=== PATIENT | male | born 1965 | race Caucasian/White ===

== ENCOUNTER 2016-12-05 09:56 | Emergency (ER) | payer OTHER, MEDICAID ==
[~2016-12-05] VITALS: Ht 165.1 cm; Wt 68.0 kg
[~2016-12-05 09:56] MED LIST: ANAPROX DS550 MG PO; ANTIHISTAMINE25 M1 PO; BACTRIM DS 8001 TA1 PO; CATAFLAM50 MG PO; DAYPRO600 M1 PO; DOXYCYCLINE HY100 M3 PO; KEFLEX500 MG PO; MEDROL DOSEPAK4 MG PO; MOTRIN400 MG PO; Motrin,Rufen800 MG PO; PIROXICAN10 MG PO; ROBAXIN-750750 MG PO; ROBAXIN750 MG PO; SEPTRA DS 800 M1 TAB PO; SEROQUEL25 MG PO; STRATTERA100 MG PO; VALIUM5 MG PO; VICODIN 5/500 505 MG PO; VICODIN 500 MG-1 TAB PO; VICODIN ES 7501 TAB PO; ZITHROMAX Z PA250 MG PO; [UNRECOGNIZED DRUG - REMARK]
[2016-12-05 15:20] VITALS: BP 134/78
== END 2016-12-05 15:24 | disposition short-term general hospital (02) ==
LOC: ED 09:56
DX: S92.001A Unspecified fracture of right calcaneus, initial encounter for closed fracture (principal); Z88.6 Allergy status to analgesic agent; Z79.899 Other long term (current) drug therapy; W01.0XXA Fall on same level from slipping, tripping and stumbling without subsequent striking against object, initial encounter; Y93.89 Activity, other specified; Y92.89 Other specified places as the place of occurrence of the external cause; Y99.8 Other external cause status

== ENCOUNTER → 2017-11-09 | Outpatient (CLI) | payer OTHER, MEDICAID ==
--- NOTE | ~2017-11-09 | EKG ---
[place], [place] ELECTROCARDIOGRAM REPORT NAME: BRANDT GANDHI UNIT #: [id number] ROOM: DOCTOR: EPIPHANY DRAFT REPORT BIRTHDATE: [birth year] [facility] [place] Test Date: 2017-11-09 Test Time: 10:09:06 Pat Name: BRANDT GANDHI Department: Room: Gender: Sign Writer Letterer Or Painter: : 1965 Requested By: TAIWO RIVERA Order Number: [id number] Reading MD: Gabby Goddard MD Measurements Intervals [place] Rate: 58 P: 42 HI: 139 QRS: 71 QRSD: 96 T: 10 QT: 410 QTc: 403 Interpretive Statements Sinus rhythm Baseline wander in lead(s) V4 Electronically Signed On 11-10-2017 14:12:21 PDT by Gabby Goddard MD CM:EKGRPT:ELECTROCARDIOGRAM REPORT [id number] TAIWO TOURE DRAFT REPORT TAIWO RIVERA
[2017-11-09 09:55] LABS: BASO # 0.1 10*3/uL (0.0-0.1); EOS # 0.1 10*3/uL (0.0-0.4); EOS % 2.3 % (1.0-4.0); HEMATOCRIT 42.8 % (42.0-52.0); HEMOGLOBIN 14.4 g/dl (14.0-18.0); LYMPH # 1.8 10*3/uL (1.3-4.4); LYMPH % 29.4 % (27.0-41.0); MEAN CELL VOLUME 97.9 fl (80.0-94.0); MEAN CORPUSCULAR HGB CONC 33.6 g/dl (33.0-37.0); MONO # 0.5 10*3/uL (0.1-1.0); MONO % 8.4 % (3.0-9.0); NEUT # 3.7 10*3/uL (2.3-7.9); NEUT % 58.7 % (47.0-73.0); PLATELET COUNT AUTOMATED 262 10*3/uL (130-400); RED BLOOD COUNT 4.37 10*6/uL (4.50-5.90); RED CELL DISTRI WIDTH 12.2 % (0-14.5); WHITE BLOOD COUNT 6.2 10*3/uL (4.8-10.8)
[2017-11-09 10:26] LABS: ALBUMIN 3.6 gm/dl (3.1-4.5); ALKALINE PHOSPHATASE 79 U/L (45-117); BILIRUBIN, DIRECT 0.1 mg/dL (0.0-0.2); BUN 11 mg/dl (7-24); CHLORIDE 109 mmol/L (98-107); CHOLESTEROL 213 mg/dL (<200); CREATININE 0.81 mg/dL (0.70-1.30); HDL CHOLESTEROL 38 mg/dl (40-60); LDL CHOLESTEROL 137 mg/dL (9-159); SGOT/AST 54 IU/L (3-35); SGPT/ALT 60 U/L (12-78); SODIUM 142 mmol/L (136-145); TOTAL PROTEIN 7.8 gm/dL (6.4-8.2); TRIGLYCERIDES 191 mg/dl (<150); VLDL CHOLESTEROL 38 mg/dL (6-40)
== END | disposition home or self-care (01) ==
LOC: LAB 09:35
PROVIDERS: Nurse Practitioner Family
DX: Z51.81 Encounter for therapeutic drug level monitoring (principal); Z79.899 Other long term (current) drug therapy

== ENCOUNTER → 2018-07-27 | Day surgery (SDC) | payer OTHER, MEDICAID ==
[~2018-07-27] VITALS: Ht 162.5 cm; Wt 59.0 kg
[~2018-07-27] MED LIST changes: +OMEPRAZOLE20 M2 PO; +PAROXETINE40 MG PO
--- NOTE | ~2018-07-27 | O ---
[place], [place] OPERATIVE NOTE NAME: BRANDT GANDHI UNIT #: [id number] ROOM: DOCTOR: CHERISE SLOAN MD BIRTHDATE: [birth year] DOS: 07/27/2018 GASTOENDOSCOPIC REPORT INDICATIONS: This is a 52-year-old who is status post cranial injury and recovery with dysphagia to solid food, difficulty to initiate the first phase of the swallow. ALLERGIES: No known medication. FAMILY HISTORY: Noncontributory. PAST SURGICAL HISTORY: Head trauma and right leg repair. PAST MEDICAL HISTORY: Sleep disorder, PST, dysphagia to solid food. SOCIAL HISTORY: Stopped smoking 3 years ago. Nonalcohol consumer. PROCEDURE: Today's procedure part of investigation is panendoscopy plus biopsy plus esophageal balloon dilation to size 19. PREMEDICATION: Propofol. SCOPE: Olympus forward-viewing gastroscope Q10 video. REPORT: After putting the patient in left lateral position and application of lubricant to the scope, scope was introduced. Thereafter, under direct visualization, advanced through the length of esophagus without difficulty. Upper esophageal benign stricture was noted. Hiatal hernia of 2.5 cm was approached. Gastric pouch was entered. Evidence of gastritis noted. Antral biopsy obtained for H. pylori. Duodenal bulb, second and third part within normal limits. At this stage, the scope was withdrawn back to the proximal gastric pouch. A balloon size 18-20 was introduced and sweeped along the length of the esophagus. Cervical esophagus at the level of the hypopharynx is extremely tight, however, we managed to dilate to size 19. The patient extubated and tolerated the procedure well. IMPRESSION: Upper esophageal stricture, status post balloon dilation to size 19, hiatal hernia, gastritis, status post biopsy. PLAN AND DISCUSSION: Omeprazole 20 mg 1 every day and elevation of the head of the bed 6 inches all time and follow up. [place], [place] OPERATIVE NOTE NAME: BRANDT GANDHI Eleazar UNIT #: [id number] ROOM: DOCTOR: CHERISE SLOAN MD BIRTHDATE: [birth year] CHERISE SLOAN MD CM:OPRECORD:OPERATIVE NOTE [id number] [id number] CHERISE SLOAN MD 08/01/18 0732 interface
[2018-07-27 12:45] VITALS: BP 130/90
[2018-07-27 13:39] VITALS: BP 128/84
[2018-07-27 13:54] VITALS: BP 135/87; BP 137/88
[2018-07-27 14:09] VITALS: BP 143/95
== END | disposition home or self-care (01) ==
LOC: SDC 07-24 11:00
DX: K22.2 Esophageal obstruction (principal); K44.9 Diaphragmatic hernia without obstruction or gangrene; Z88.8 Allergy status to other drugs, medicaments and biological substances; Z82.49 Family history of ischemic heart disease and other diseases of the circulatory system; G43.909 Migraine, unspecified, not intractable, without status migrainosus; Z98.890 Other specified postprocedural states; I10 Essential (primary) hypertension; K29.50 Unspecified chronic gastritis without bleeding; F41.9 Anxiety disorder, unspecified; F32.9 Major depressive disorder, single episode, unspecified

== ENCOUNTER 2018-11-26 00:57 | Inpatient (IN) | payer OTHER, MEDICAID ==
[2018-11-08 14:19] VITALS: BP 179/115
[2018-11-08 15:29] LABS: BASO # 0.1 10*3/uL (0.0-0.1); BASO % 1.2 % (0.0-1.0); EOS # 0.1 10*3/uL (0.0-0.4); EOS % 0.9 % (1.0-4.0); HEMATOCRIT 47.6 % (42.0-52.0); HEMOGLOBIN 16.7 g/dl (14.0-18.0); LYMPH # 1.6 10*3/uL (1.3-4.4); LYMPH % 28.8 % (27.0-41.0); MEAN CELL VOLUME 96.7 fl (80.0-94.0); MEAN CORPUSCULAR HGB 33.9 pg (27.0-31.0); MEAN CORPUSCULAR HGB CONC 35.1 g/dl (33.0-37.0); MEAN PLATELET VOLUME 10.6 fl (9.6-12.3); MONO # 0.5 10*3/uL (0.1-1.0); MONO % 9.4 % (3.0-9.0); NEUT # 3.4 10*3/uL (2.3-7.9); NEUT % 59.7 % (47.0-73.0); PLATELET COUNT AUTOMATED 189 10*3/uL (130-400); RED BLOOD COUNT 4.92 10*6/uL (4.50-5.90); RED CELL DISTRI WIDTH 12.6 % (0-14.5); WHITE BLOOD COUNT 5.7 10*3/uL (4.8-10.8)
[2018-11-08 15:54] LABS: BUN 9 mg/dl (7-24); CHLORIDE 103 mmol/L (98-107); CREATININE 0.76 mg/dL (0.70-1.30); POTASSIUM 3.8 mmol/L (3.5-5.1); SODIUM 138 mmol/L (136-145)
[2018-11-08 16:10] LABS: BILIRUBIN NEGATIVE (NEGATIVE); BLOOD NEGATIVE (NEGATIVE); CLARITY CLEAR (CLEAR); COLOR YELLOW (YELLOW); GLUCOSE NEGATIVE (NEGATIVE); KETONE NEGATIVE (NEGATIVE); LEUKO ESTERASE TRACE (NEGATIVE); NITRITE NEGATIVE (NEGATIVE); PH 7.5 (5.0-9.0); SPECIFIC GRAVITY <= 1.005 (1.005-1.030); UROBILINOGEN 0.2 E.U./dl (0.2-1.0)
[2018-11-08 16:17] LABS: WBC 0-2 wbc/hpf (0-5)
[2018-11-26] VITALS (8 sets, daily range): BP systolic 134–169; BP diastolic 82–100
[~2018-11-26] VITALS: Ht 162.5 cm; Wt 65.8 kg
[~2018-11-26 00:57] MED LIST changes: +ASPIRIN ADULT L81 M1 PO; +ATOMOXETINE HCL80 MG PO; +NEUDEXT PO; +PANTOPRAZOLE SO40 MG PO
--- NOTE | 2018-11-26 14:46 | NUR ---
Time: 1445 A year old MALE admitted to under services of DR. OLIVIER DORMAN,DEWAYNE CAPUTO. Pt. arrived [place] from [place]. Chief complaint: S/P COLON RESECTION. AZIZA GARCIA
--- NOTE | 2018-11-26 16:21 | NUR ---
NURSE TO NURSE REPORT REC'D FROM GRAEME DAILY IN SURGERY. PT TO BE COMING TO ROOM SOON FROM RECOVERY FOLLOWING RIGHT SIDED OPEN COLON RESECTION.
--- NOTE | 2018-11-26 17:00 | NUR ---
MORPHINE GIVE FOR PAIN RELATED TO ABD SURGERY RATED 10/10. PT RESTLESS AND WINCHING IN PAIN. CALL LIGHT IN REACH. WILL MONITOR. VISITORS AT BEDSIDE.
--- NOTE | 2018-11-26 17:49 | NUR ---
PER PT, MORPHINE WAS EFFECTIVE. CALL LIGHT IN REACH. WILL CONTINUE TO MONITOR. PAIN RATED 3/10.
--- NOTE | 2018-11-26 18:57 | NUR ---
MED REC UPDATED.
--- NOTE | 2018-11-26 20:40 | NUR ---
PRN MORPHINE GIVEN FOR POST-OP ABD PAIN RATED 10/10. CALL LIGHT IN REACH. IVF GOING WITH EASE. WILL CONTINUE TO MONITOR.
--- NOTE | 2018-11-26 20:45 | NUR ---
Pt instructed on incentive spirometer. Encouraged self use 10 breaths an hour.
--- NOTE | 2018-11-26 21:36 | NUR ---
PER PT, PAIN TO ABD IS RATED 2/10 FOLLOWING MORPHINE. CALL LIGHT IN REACH. WILL CONTINUE TO MONITOR.
[2018-11-27] VITALS: BP 146/89
--- NOTE | 2018-11-27 06:12 | NUR ---
OKSANABRANDT [id number] Please refer to the physician's history and physical for past medical history, comorbid conditions, and allergies. Diagnosis: S/P COLON RESECTION Sheldon Score: 19,LOW OR NO RISK WOUND DESCRIPTIONS: Wound Number: 1 Dressing intact to middle of abdomen. No strikethrough drainage noted at time of assessment. Abdominal binder intact at time of assessment. Patient was having pain at time of assessment and nurse caring for patient was getting prn medication at this time. Patient stated he will follow up with Dr. Rothman upon discharge since her performed the surgery. Surface the patient is resting on: Isoflex SKIN PREVENTION RECOMMENDATION: 1. Pressure redistribution support surface as appropriate 2. Elevate heels 3. Remove boots/TEDS every shift and reapply 4. Head of bed 30 degrees as tolerated 5. Assess nutrition and hydration 6. Manage moisture 7. Avoid the use of containment devices while in bed 8. Use absorptive products on surfaces limit layers of linens on bed 9. Turn and reposition every 1-2 hours in bed and every 1 hour in chair as tolerated 10. Weight shifts every 15 minutes while up in chair 11. Offloading with pillows or device to keep heels elevated off bed 12. Monitor skin at least every shift 13. Inspect under medical devices twice a day WOUND TREATMENT RECOMMENDATIONS: Continue post orders per Dr. Rothman.
[2018-11-27 07:35] LABS: BASO % 0.1 % (0.0-1.0); HEMATOCRIT 43.7 % (42.0-52.0); LYMPH # 0.7 10*3/uL (1.3-4.4); LYMPH % 7.6 % (27.0-41.0); MEAN CELL VOLUME 97.1 fl (80.0-94.0); MEAN CORPUSCULAR HGB 33.3 pg (27.0-31.0); MEAN CORPUSCULAR HGB CONC 34.3 g/dl (33.0-37.0); MEAN PLATELET VOLUME 11.2 fl (9.6-12.3); MONO % 10.3 % (3.0-9.0); NEUT # 7.9 10*3/uL (2.3-7.9); NEUT % 81.8 % (47.0-73.0); PLATELET COUNT AUTOMATED 174 10*3/uL (130-400); RED CELL DISTRI WIDTH 12.1 % (0-14.5); WHITE BLOOD COUNT 9.6 10*3/uL (4.8-10.8)
--- NOTE | 2018-11-27 07:48 | NUR ---
Shift chart check completed.24 HR chart check completed.Patient asleep with face relaxed, no respiratory distress, during bedside report.
[2018-11-27 07:57] LABS: ALBUMIN 2.9 gm/dl (3.1-4.5); ALKALINE PHOSPHATASE 54 U/L (45-117); BUN 8 mg/dl (7-24); CHLORIDE 106 mmol/L (98-107); CREATININE 0.77 mg/dL (0.70-1.30); SGOT/AST 32 IU/L (3-35); SGPT/ALT 28 U/L (12-78); SODIUM 137 mmol/L (136-145)
[2018-11-27 08:00] VITALS: BP 140/91
--- NOTE | 2018-11-27 09:04 | NUR ---
ON ASSESSMENT PATIENT IS RESTING EASILY. HE'S NPO EXCEPT FOR ICE CHIPS AND SIPS OF WATER. HE CLAIMS TO BE HUNGRY AND C/O ABDOMINAL PAIN. IV FLUIDS CONTINUE. DRESSING IS INTACT WITH NO EXTERNAL DRAINAGE, BINDER IN PLACE. SCD'S ON. STEPHENSON PATENT MONTRELL URINE.
--- NOTE | 2018-11-27 09:37 | NUR ---
MEDICATED WITH PRN MORPHINE PER ORDER AND REQUEST FO ABDOMINAL PAIN RATED AT 8 OUT OF 10.
--- NOTE | 2018-11-27 10:51 | NUR ---
EARLIER PAIN MED "HELPING".
[2018-11-27 12:00] VITALS: BP 140/82
--- NOTE | 2018-11-27 12:44 | NUR ---
CALLED FOR NEW DIET ORDERS. PT HAS BSX4 HYPERACTIVE BUT HAS NOT PASSED FLATUS YET. ORDERED TO CONTINUE ICE CHIPS WITH SIPS OF WATER ONLY.
--- NOTE | 2018-11-27 13:35 | NUR ---
MORPHINE GIVEN FOR ABD PAIN RATED 10/10. CALL LIGHT IN REACH. VISITOR AT BEDSIDE. WILL MONITOR.
--- NOTE | 2018-11-27 13:50 | NUR ---
Gravel Inspector in to talk to patient. Patient states lives at HOME with ALONE. There are NO steps in the home. Physician: NONE, Pharmacy: [facility] Home health services: NONE Patient's level of ADLs: INDEPENDENT Patient has working utilities: YES DME: HAS SHOWER CHAIR, CANE Follow-up physician's appointment after d/c: PT WANTS TO BE SET UP WITH RESIDENT CLINIC ON DISCHARGE. NUMBER GIVEN TO PT Does patient want to access PORTAL?: NO Discharge plan PT LIVES AT HOME ALONE AND IS INDEPENDENT IN HIS CARE. STATES HE DOES NOT HAVE A DOCTOR AND WOULD LIKE TO START GOING TO [facility]IDENT CLINIC. PT PROVIDED WITH NUMBER FOR RES CLINIC. STATES HE IS GOING TO RETURN HOME ON DISCHARGE WITH HIS FATHER HELPING HIM. WILL CONTINUE TO FOLLOW. WILL HAVE A RIDE HOME PER PT.. HOMER CHOUDHARY
--- NOTE | 2018-11-27 14:05 | NUR ---
UP OUT OF BED VIA USE OF WALKER. TOLERATED WELL. SOME COMPLAINTS OF PAIN TO ABD AND RT LEG NOTED BUT PT STATES IT WAS TOLERABLE. WALKED PASSED ONE ROOM TO SURGERY ELEVATORS AND BACK. ASSISTED BACK INTO BED. SCDS APPLIED. IVF INFUSING WITH EASE. CALL LIGHT WITHIN REACH. WILL CONTINUE TO MONITOR.
[2018-11-27 16:00] VITALS: BP 153/91
--- NOTE | 2018-11-27 16:11 | NUR ---
UP, OOB. AMBULATED TO NURSING STATION AND BACK TO ROOM WITH USE OF WALKER. TOLERATED WELL. DEMONSTRATED PROPER TECHNIQUES WITH TURNS AND PIVOTING. MORPHINE GIVEN PER ORDERS ONCE BACK TO BED. CALL LIGHT WITHIN REACH. WILL MONITOR.
--- NOTE | 2018-11-27 19:12 | NUR ---
STEPHENSON CATH REMVOED. TOLERATED WELL. CALL LIGHT IN REACH. URINAL PROVIDED.
[2018-11-27 20:00] VITALS: BP 152/86
--- NOTE | 2018-11-27 22:52 | NUR ---
PT STATES HE IS UNABLE TO START STREAM TO VOID FOLLOWING CATHETER REMOVAL. BLADDER SCANNED FOR 150CC.
--- NOTE | 2018-11-27 23:32 | NUR ---
NOTIFIED OF PATIENT'S C/O NAUSEA. NO ORDER FOR ANTINAUSEA MEDICATION PRESENT. NEW ORDER RECEIVED FOR 4 MG IV ZOFRAN Q4H PRN.
--- NOTE | 2018-11-28 00:14 | NUR ---
IV ZOFRAN ADMINISTERED PER PRN ORDER FOR C/O NAUSEA AND SMALL AMOUNT OF EMESIS. EMESIS DARK BROWN IN COLOR. PT STATES HE HAD BEEF BROTH AND TEA FOR DINNER. NO COFFEE-GROUND APPEARANCE OR BLOOD-LIKE CONSISTENCY NOTED AT THIS TIME. PT ENCOURAGED TO NOTIFY RN IF NEW/WORSENING SYPTOMS ARISE. WILL MONITOR. CALL LIGHT IN REACH. ABD DRESSING DRY & INTACT. BINDER IN PLACE.
--- NOTE | 2018-11-28 01:48 | NUR ---
PT MEDICATED WITH PO NORCO FOR C/O PAIN IN ABDOMEN RATED 8/10. WILL MONITOR EFFECTIVENESS. CALL LIGHT IN REACH.
--- NOTE | 2018-11-28 03:45 | NUR ---
PATIENT RESTING IN BED WITH EYES CLOSED. RESPS EASY AND REGULAR. BED IN LOWEST POSITION, CALL LIGHT IN REACH
[2018-11-28 08:00] VITALS: BP 150/96
--- NOTE | 2018-11-28 08:51 | NUR ---
MORPHINE GIVEN PER REQUEST FOR C/O ABDM. PAIN, RATES 10/10 ON PAIN SCALE. WILLL MONITOR.
--- NOTE | 2018-11-28 14:07 | NUR ---
PT STATES HE WANTS TO GO HOME ON DISCHARGE. STATES HIS DAD WILL HELP HIM WHEN HE GOES HOME. WILL CONTINUE TO FOLLOW.
--- NOTE | 2018-11-28 14:28 | NUR ---
MORPHINE GIVEN FOR C/O ABDM. PAIN. RATES 10/10 ON PAIN SCALE. WILL MONITOR.
[2018-11-28 14:55] LABS: BUN 7 mg/dl (7-24); CHLORIDE 103 mmol/L (98-107); CREATININE 0.62 mg/dL (0.70-1.30); PHOSPHOROUS 1.6 mg/dL (2.5-4.9); SODIUM 133 mmol/L (136-145)
--- NOTE | 2018-11-28 15:45 | NUR ---
NOTIFIED DR. AGUAYO OF PT'S BP, NEW ORDERS GIVEN.
[2018-11-28 16:00] VITALS: BP 182/109
--- NOTE | 2018-11-28 16:55 | NUR ---
NOTIFIED DR. AGUAYO OF PT'S BP. NEW ORDERS GIVEN.
--- NOTE | 2018-11-28 18:30 | NUR ---
SPOKE WITH DR. FIGUEROA REGARDING PT'S BP, 184/110.
[2018-11-28 20:00] VITALS: BP 160/98
--- NOTE | 2018-11-28 20:29 | NUR ---
SPOKE WITH REGARDING BLOODY STOOLS AND NG TUBE DISPLACEMENT. ORDERS RECIEVED. STATED TO LEAVE THE NG OUT AND MONITOR AND THAT BLOODY BOWEL MOVEMENT WAS NORMAL. STATED TO CALL IN THE MORNING IF PATIENT WAS EXPERIENCING AY NAUSEA/ABDOMINAL DISTENSION. 600ML COLLECTED IN NG CONTAINER.
--- NOTE | 2018-11-28 20:34 | NUR ---
SPOKE WITH ABOUT PATIENTS BP. BP WAS 160/98. SAID TO GIVE 5MG OF HYDRALAZINE AND CONTINUE TO MONITOR PRESSURE.
--- NOTE | 2018-11-28 21:48 | NUR ---
PATIENT COMPLAINS OF 8/10 ABDOMINAL PAIN. MEDICATED PER ORDER. VERBALZIED RELIEF. VOICES NO OTHER CONCERNS AT THIS TIME. RESTING IN BED. CALL LIGHT WITHIN REACH.
[2018-11-28 21:49] VITALS: BP 146/88
--- NOTE | 2018-11-28 21:49 | NUR ---
BP 146/88 MANUAL AFTER GIVING 5MG APRESOLINE
--- NOTE | 2018-11-28 22:49 | NUR ---
PAIN MEDICATION EFFECTIVE
[2018-11-29] VITALS: BP 120/82
--- NOTE | 2018-11-29 01:29 | NUR ---
24 HR chart check completed.
--- NOTE | 2018-11-29 05:57 | NUR ---
Patient resting quietly with no c/o discomfort. Respirations easy and regular. Vital signs stable. No overt distress. CALL LIGHT WITHIN REACH. HISSOM,JESSE
[2018-11-29 06:53] LABS: BUN 8 mg/dl (7-24); CHLORIDE 100 mmol/L (98-107); CREATININE 0.61 mg/dL (0.70-1.30); PHOSPHOROUS 1.9 mg/dL (2.5-4.9); POTASSIUM 3.6 mmol/L (3.5-5.1); SODIUM 135 mmol/L (136-145)
[2018-11-29 08:00] VITALS: BP 157/99
--- NOTE | 2018-11-29 09:10 | NUR ---
MEDICATED WITH MORPHINE FOR COMPLAINTS OF ALL OVER ABD PAIN, RATES PAIN 8/10, MEDICATED WITH ZOFRAN FOR MILD NAUSEA AND HEART BURN. WILL MONITOR FOR EFFECTIVENESS.
--- NOTE | 2018-11-29 09:25 | NUR ---
DR AGUAYO IN TO SEE PT AT THIS TIME.
--- NOTE | 2018-11-29 11:12 | NUR ---
GI COCKTAIL, PHENERGAN, AND TORADOL GIVEN PER ORDER. WILL MONITOR.
--- NOTE | 2018-11-29 12:01 | NUR ---
PT STATES HE IS FEELING MUCH BETTER, BUT HICCUPS CONTINUE.
--- NOTE | 2018-11-29 14:51 | NUR ---
TALKED WITH PT AGAIN ABOUT HOME NEEDS. HE STATES HIS DAD AND HIS AUNT ARE GOING TO HELP HIM AND HE DOSEN'T WANT ANY OTHER HELP. WILL CONTINUE TO FOLLOW.
--- NOTE | 2018-11-29 15:12 | NUR ---
PT SLEEPING AT THIS TIME.
[2018-11-29 16:00] VITALS: BP 134/75
--- NOTE | 2018-11-29 17:03 | NUR ---
PT RESTING AT THIS TIME. CALL LIGHT WITHIN REACH.
--- NOTE | 2018-11-29 17:34 | NUR ---
SPOKE WITH DR AGUAYO REGARDING PT'S PERSISTENT HEART BURN AND BELCHING. STATES EARLIER MEDICATIONS HELPED FOR A LITTLE WHILE, BUT NOW IT HAS RESUMED. ORDERS RECEIVED.
--- NOTE | 2018-11-29 18:10 | NUR ---
GI COCKTAIL AND TORADOL GIVEN FOR ABD DISCOMFORT AND HEART BURN. WILL MONITOR.
--- NOTE | 2018-11-29 21:38 | NUR ---
PATIENTS IV PUMP NOT RUNNING CORRECTLY. TUBING WAS KINKED OFF. REPLACED TUBING AND RESET PUMP.
--- NOTE | 2018-11-29 21:38 | NUR ---
PATIENT COMPLAINS OF 10/16 ABD PAIN AND ANXIETY. MEDICATED PER ORDER. VOICES NO OTHER CONCERNS AT THIS TIME. RESTING IN BED. CALL LIGHT WITHIN REACH. WILL CONTINUE TO MONITOR FOR RELIEF
--- NOTE | 2018-11-29 22:19 | NUR ---
ATIVAN AND MORPHINE EFFECTIVE
[2018-11-30] VITALS: BP 110/70; BP 93/55
[2018-11-30 00:33] VITALS: BP 110/70
--- NOTE | 2018-11-30 01:04 | NUR ---
Patient resting quietly with no c/o discomfort. Respirations easy and regular. Vital signs stable. No overt distress. CALL LIGHT WITHIN REACH HISSOM,JESSE
--- NOTE | 2018-11-30 02:46 | NUR ---
24 HR chart check completed.
--- NOTE | 2018-11-30 03:19 | NUR ---
24 HR chart check completed.
--- NOTE | 2018-11-30 05:58 | NUR ---
Patient resting quietly with no c/o discomfort. Respirations easy and regular. Vital signs stable. No overt distress. HISSOM,EJSSE
[2018-11-30 08:00] VITALS: BP 119/74
[2018-11-30 08:36] LABS: BASO % 0.4 % (0.0-1.0); EOS % 0.1 % (1.0-4.0); HEMATOCRIT 30.8 % (42.0-52.0); HEMOGLOBIN 10.5 g/dl (14.0-18.0); LYMPH # 0.9 10*3/uL (1.3-4.4); LYMPH % 12.4 % (27.0-41.0); MEAN CELL VOLUME 97.8 fl (80.0-94.0); MEAN CORPUSCULAR HGB 33.3 pg (27.0-31.0); MEAN CORPUSCULAR HGB CONC 34.1 g/dl (33.0-37.0); MEAN PLATELET VOLUME 10.5 fl (9.6-12.3); MONO # 1.1 10*3/uL (0.1-1.0); MONO % 14.3 % (3.0-9.0); NEUT # 5.5 10*3/uL (2.3-7.9); NEUT % 72.5 % (47.0-73.0); PLATELET COUNT AUTOMATED 210 10*3/uL (130-400); RED BLOOD COUNT 3.15 10*6/uL (4.50-5.90); WHITE BLOOD COUNT 7.6 10*3/uL (4.8-10.8)
[2018-11-30 08:40] LABS: BUN 14 mg/dl (7-24); CHLORIDE 102 mmol/L (98-107); CREATININE 0.87 mg/dL (0.70-1.30); PHOSPHOROUS 1.9 mg/dL (2.5-4.9); POTASSIUM 3.6 mmol/L (3.5-5.1); SODIUM 137 mmol/L (136-145)
--- NOTE | 2018-11-30 09:00 | NUR ---
MEDICATED WITH NORCO PER PRN ORDER FOR COMPLAINTS OF ABDOMINAL PAIN,RATES PAIN 7.5/10. WILL CONTINUE TO MONITOR.
--- NOTE | 2018-11-30 11:37 | NUR ---
MEDICATED WITH MORPHINE PER PRN ORDER FOR COMPLAINTS OF 8/10 ABDOMINAL PAIN. WILL CONTINUE TO MONITOR.
--- NOTE | 2018-11-30 11:50 | NUR ---
DR AGUAYO HERE AT THIS TIME, SURGICAL DRESSING CHANGED.
--- NOTE | 2018-11-30 12:30 | NUR ---
PT RESTING, EARLIER MEDICATIONS EFFECTIVE.
--- NOTE | 2018-11-30 12:32 | NUR ---
Nutritional Support Services Note: Pts diet advanced to full liquid. Tolerating diet/po intake. Advance diet as tolerated. Appetite is usually good, stressed importance of adequate protein and calories to promote healing. Will follow as needed. Luda Fuller Rdn Ld
--- NOTE | 2018-11-30 14:50 | NUR ---
PT WILL GO HOME ON DISCHARGE WITH HELP FROM HIS DAD AND AUNT. WILL CONTINUE TO FOLLOW.
--- NOTE | 2018-11-30 15:33 | NUR ---
PT RESTING. NO DISTRESS NOTED. CALL LIGHT WITHIN REACH.
[2018-11-30 16:00] VITALS: BP 141/80
--- NOTE | 2018-11-30 17:10 | NUR ---
MEDICATED WITH NORCO FOR ABD PAIN. RATES PAIN 8/10. WILL MONITOR FOR EFFECTIVENESS.
[2018-11-30 20:00] VITALS: BP 171/91
[2018-12-01] VITALS: BP 139/74
[2018-12-01 06:48] LABS: BASO % 0.5 % (0.0-1.0); EOS # 0.1 10*3/uL (0.0-0.4); EOS % 1.7 % (1.0-4.0); HEMATOCRIT 30.7 % (42.0-52.0); HEMOGLOBIN 10.1 g/dl (14.0-18.0); LYMPH # 1.1 10*3/uL (1.3-4.4); LYMPH % 17.8 % (27.0-41.0); MEAN CELL VOLUME 98.4 fl (80.0-94.0); MEAN CORPUSCULAR HGB 32.4 pg (27.0-31.0); MEAN CORPUSCULAR HGB CONC 32.9 g/dl (33.0-37.0); MEAN PLATELET VOLUME 10.5 fl (9.6-12.3); MONO # 0.8 10*3/uL (0.1-1.0); MONO % 14.2 % (3.0-9.0); NEUT # 3.9 10*3/uL (2.3-7.9); NEUT % 65.3 % (47.0-73.0); PLATELET COUNT AUTOMATED 226 10*3/uL (130-400); RED BLOOD COUNT 3.12 10*6/uL (4.50-5.90); RED CELL DISTRI WIDTH 11.7 % (0-14.5); WHITE BLOOD COUNT 5.9 10*3/uL (4.8-10.8)
[2018-12-01 06:52] LABS: BUN 8 mg/dl (7-24); CHLORIDE 103 mmol/L (98-107); CREATININE 0.72 mg/dL (0.70-1.30); PHOSPHOROUS 2.2 mg/dL (2.5-4.9); POTASSIUM 3.7 mmol/L (3.5-5.1); SODIUM 135 mmol/L (136-145)
[2018-12-01 08:00] VITALS: BP 157/93
--- NOTE | 2018-12-01 09:15 | NUR ---
PT REQUESTED IV MORPHINE PER PRN ORDER FOR C/O ABD PAIN. RATES PAIN 8/10. WILL MONITOR EFFECTIVENESS.
--- NOTE | 2018-12-01 10:00 | NUR ---
MORPHINE RELIEVING PAIN PER PT.
--- NOTE | 2018-12-01 12:30 | NUR ---
PT TOLERATED FULL LIQUID DIET FOR LUNCH. WILL ADVANCE DIET TOLERATED.
--- NOTE | 2018-12-01 13:36 | NUR ---
PT MEDICATED WITH PO NORCO PER PRN ORDER FOR C/O ABD PAIN. WILL MONITOR EFFECTIVENESS. CALL LIGHT WITHIN REACH.
--- NOTE | 2018-12-01 15:00 | NUR ---
NORCO EFFECTIVE PER PT. WILL CONTINUE TO MONITOR.
[2018-12-01 16:00] VITALS: BP 158/78
--- NOTE | 2018-12-01 17:47 | NUR ---
DRESSING CHANGED TO ABDOMINAL INCISION. 29 TONY INTACT. NO DRAINAGE NOTED. DRY DRESSING APPLIED. WILL MONITOR. ABD BINDER APPLIED.
[2018-12-01 20:00] VITALS: BP 156/81
--- NOTE | 2018-12-01 20:28 | NUR ---
PT RESTING IN BED AT THIS TIME. EYES CLOSED. RESPIRATIONS EASY AND UNLABORED. PT AROUSES EASILY TO VERBAL STIMULI AND DENIES NEEDING ANYTHING AT THE MOMENT. FLUIDS INFUSING PER ORDERS. ALL SAFETY MEASURES IN PLACE. CALL LIGHT IN REACH.
--- NOTE | 2018-12-01 22:23 | NUR ---
PT RESTING IN BED, EASILY AROUSED. PT C/O PAIN TO ABDOMEN, RATES PAIN AN 8/10. PT ALSO C/O INDIGESTION AND NAUSEA. MAALOX AND ZOFRAN GIVEN TO PT AT THIS TIME. MORPHINE 2 MG GIVEN, WELL. PT VITALS, BP WNL. ASSESSMENT COMPLETE. ABDOMINAL BINDER IN TACT-WHEN REMOVED, DRESSING TO ABDOMEN C/D/I. PT STATES THAT HE HAS HAD BOWEL MOVEMENTS SINCE SURGERY AND IS PASSING FLATUS. NORMOACTIVE BOWEL SOUNDSX4. PT STATES THAT WHEN EATING HIS DINNER, AFTER BEING ADVANCED TO SOFT DIET, HE DID EXPERIENCE SOME NAUSEA-THEREFORE HE STOPPED EATING AND STATES THAT HE WILL TRY TO EAT SOME OF IT LATER ON TONIGHT AND WILL REPORT TO THIS NURSE HOW HE TOLERATES THE SOFT DIET. ALL OTHER NEEDS MET AT THIS TIME. IV FLUIDS INFUSING INTO RIGHT ARM IV. IV SITE PATENT, DRESSING C/D/I. ALL SAFETY MEASURES IN PLACE. PT UPDATED ON ALL PAIN MEDICATIONS AVAILABLE AND WHITE BOARD UPDATED. CALL LIGHT IN REACH.
--- NOTE | 2018-12-01 23:23 | NUR ---
PT STATES THAT MORPHINE, ZOFRAN, AND MAALOX ARE EFFECTIVE FOR HIS PAIN, NAUSEA, AND INIDIGESTION. PT RESTING IN BED. EASILY AROUSED. NO S/S OF DISTRESS. NO COMPLAINTS OFFERED AT THIS TIME. RESPIREATIONS UNLABORED. CALL LIGHT IN REACH.
[2018-12-01 23:45] VITALS: BP 148/82
[2018-12-02] VITALS: BP 169/85
--- NOTE | 2018-12-02 01:45 | NUR ---
PT RESTING IN BED. RESPIRATIONS EASY/UNLABORED ON ROOM AIR. IV FLUIDS INFUSING PER ORDERS. PT HAS NO S/S OF DISTRESS. PT NOT AWAKENED AT THIS TIME. CALL LIGHT IN REACH.
--- NOTE | 2018-12-02 05:27 | NUR ---
PT GIVEN AM MEDICATIONS. PT DENIES NEEDING ANYTHING FOR PAIN AT THIS TIME. WILL CONTINUE TO MONITOR PT. PT REMINDED TO USE CALL LIGHT FOR ANYTHING THAT HE MAY NEED. CALL LIGHT IN REACH.
--- NOTE | 2018-12-02 06:14 | NUR ---
24 HR chart check completed.
[2018-12-02 06:24] LABS: BASO % 0.6 % (0.0-1.0); EOS # 0.1 10*3/uL (0.0-0.4); HEMATOCRIT 27.8 % (42.0-52.0); HEMOGLOBIN 9.4 g/dl (14.0-18.0); LYMPH # 1.3 10*3/uL (1.3-4.4); LYMPH % 23.1 % (27.0-41.0); MEAN CELL VOLUME 97.9 fl (80.0-94.0); MEAN CORPUSCULAR HGB 33.1 pg (27.0-31.0); MEAN CORPUSCULAR HGB CONC 33.8 g/dl (33.0-37.0); MEAN PLATELET VOLUME 10.2 fl (9.6-12.3); MONO # 0.8 10*3/uL (0.1-1.0); MONO % 14.1 % (3.0-9.0); NEUT # 3.2 10*3/uL (2.3-7.9); NEUT % 59.5 % (47.0-73.0); PLATELET COUNT AUTOMATED 247 10*3/uL (130-400); RED BLOOD COUNT 2.84 10*6/uL (4.50-5.90); RED CELL DISTRI WIDTH 11.7 % (0-14.5); WHITE BLOOD COUNT 5.4 10*3/uL (4.8-10.8)
[2018-12-02 06:43] LABS: ALBUMIN 2.5 gm/dl (3.1-4.5); ALKALINE PHOSPHATASE 51 U/L (45-117); BUN 5 mg/dl (7-24); CHLORIDE 105 mmol/L (98-107); CREATININE 0.65 mg/dL (0.70-1.30); POTASSIUM 3.6 mmol/L (3.5-5.1); SGOT/AST 17 IU/L (3-35); SGPT/ALT 15 U/L (12-78); SODIUM 138 mmol/L (136-145)
[2018-12-02 08:00] VITALS: BP 155/84
--- NOTE | 2018-12-02 08:00 | NUR ---
PT UP TO SHOWER THIS AM.
--- NOTE | 2018-12-02 09:23 | NUR ---
PT MEDICATED WITH IV MORPHINE PER PRN ORDER FOR C/O ABD PAIN. RATES PAIN 10/06. WILL MONITOR EFFECTIVENESS.
--- NOTE | 2018-12-02 10:20 | NUR ---
MORPHINE EFFECTIVE PER PT.
--- NOTE | 2018-12-02 14:08 | NUR ---
PT MEDICATED WITH PO NORCO PER PRN ORDER FOR C/O ABD PAIN. RATES PAIN 5/10. WILL MONITOR EFFECTIVENESS. CALL LIGHT WITHIN REACH.
[2018-12-02 16:00] VITALS: BP 151/79
[2018-12-02] MEDS ORDERED: NORCO 5-325 TA1 EACH PO (16:30)
--- NOTE | 2018-12-02 16:36 | NUR ---
IN TO SEE PT. PROBABLE DISCHARGE IN AM. PAIN MED SCRIPT ON CHART AND SIGNED.
--- NOTE | 2018-12-02 21:25 | NUR ---
NORCO GIVEN FOR C/O ABD PAIN. CALL LIGHT IN REACH. AMBULATORY IN ROOM AT THIS TIME. WILL MONITOR.
--- NOTE | 2018-12-02 23:37 | NUR ---
PATIENT RESTING IN BED WITH EYES CLOSED. RESPS EASY AND REGULAR. BED IN LOWEST POSITION, CALL LIGHT IN REACH
[2018-12-03] VITALS: BP 123/71
--- NOTE | 2018-12-03 03:11 | NUR ---
PATIENT RESTING IN BED WITH NO S/S OF DISTRESS. BED IN LOWEST POSITION, CALL LIGHT IN REACH
[2018-12-03 06:18] LABS: BASO % 0.4 % (0.0-1.0); EOS # 0.2 10*3/uL (0.0-0.4); EOS % 2.7 % (1.0-4.0); HEMATOCRIT 28.5 % (42.0-52.0); HEMOGLOBIN 9.7 g/dl (14.0-18.0); LYMPH # 1.4 10*3/uL (1.3-4.4); LYMPH % 20.1 % (27.0-41.0); MEAN CELL VOLUME 97.6 fl (80.0-94.0); MEAN CORPUSCULAR HGB 33.2 pg (27.0-31.0); MONO # 0.9 10*3/uL (0.1-1.0); MONO % 13.3 % (3.0-9.0); NEUT # 4.5 10*3/uL (2.3-7.9); NEUT % 62.8 % (47.0-73.0); PLATELET COUNT AUTOMATED 299 10*3/uL (130-400); RED BLOOD COUNT 2.92 10*6/uL (4.50-5.90); RED CELL DISTRI WIDTH 11.7 % (0-14.5); WHITE BLOOD COUNT 7.1 10*3/uL (4.8-10.8)
[2018-12-03 06:41] LABS: ALBUMIN 2.7 gm/dl (3.1-4.5); ALKALINE PHOSPHATASE 58 U/L (45-117); BUN 10 mg/dl (7-24); CHLORIDE 101 mmol/L (98-107); CREATININE 0.69 mg/dL (0.70-1.30); POTASSIUM 4.2 mmol/L (3.5-5.1); SGOT/AST 15 IU/L (3-35); SGPT/ALT 17 U/L (12-78); SODIUM 134 mmol/L (136-145); TOTAL PROTEIN 6.5 gm/dL (6.4-8.2)
[2018-12-03 08:00] VITALS: BP 142/87
--- NOTE | 2018-12-03 08:12 | NUR ---
PT COMPLAIN OF ABDOMINAL PAIN, 08/06. NORCO GIVEN. NO OTHER NEEDS STATED AT THIS TIME.
--- NOTE | 2018-12-03 09:00 | NUR ---
NORCO EFFECTIVE FOR PAIN
--- NOTE | 2018-12-03 09:58 | NUR ---
Nutritonal Support Services Note: Pts diet advanced to soft. Tolerating diet, eating good. Has some c/o pain. Will follow as needed. Luda Fuller Rdn Ld
--- NOTE | 2018-12-03 14:21 | NUR ---
Discharge instructions reviewed with patient/family. Patient receptive and verbalizes understanding. Follow-up care arranged. Written instructions given to patient/family. PT DOES NOT WANT WOUND DRESSING CHANGED PRIOR TO DISCHARGE. STATES WILL SHOWER WHEN HE GETS HOME AND CHANGE IT WHEN HE GETS HOME. UNDERSTANDS NORCO RX FILLED AT [facility] AND TO POWER GRADER OPERATOR. UNDERSTANDS FOLLOW UP APPOINTMENTS AND HAS NO QUESTIONS ON DISCHARGE INSTRUCTIONS. NAHUN WISE
== END 2018-12-03 14:21 | disposition home or self-care (01) | DRG 330 ==
LOC: SDC 00:57 → 4E 15:48
PROVIDERS: Emergency Medicine; Internal Medicine; Student in an Organized Health Care Education/Training Program
PROC: 0DJD4ZZ Inspection of Lower Intestinal Tract, Percutaneous Endoscopic Approach (ICD-10-PCS; principal; 2018-11-26)
PROC: 0DTF0ZZ Resection of Right Large Intestine, Open Approach (ICD-10-PCS; principal; 2018-11-26)
DX: D12.0 Benign neoplasm of cecum (principal); E87.1 Hypo-osmolality and hyponatremia; E44.0 Moderate protein-calorie malnutrition; K56.7 Ileus, unspecified; R73.9 Hyperglycemia, unspecified; E83.39 Other disorders of phosphorus metabolism; F41.9 Anxiety disorder, unspecified; F32.9 Major depressive disorder, single episode, unspecified; I10 Essential (primary) hypertension; I16.0 Hypertensive urgency; D75.89 Other specified diseases of blood and blood-forming organs; Z88.6 Allergy status to analgesic agent; Z88.8 Allergy status to other drugs, medicaments and biological substances; Z79.82 Long term (current) use of aspirin; Z79.899 Other long term (current) drug therapy; Z82.49 Family history of ischemic heart disease and other diseases of the circulatory system; Z82.3 Family history of stroke; Z80.8 Family history of malignant neoplasm of other organs or systems; Z53.31 Laparoscopic surgical procedure converted to open procedure; Z68.24 Body mass index [BMI] 24.0-24.9, adult

== ENCOUNTER → 2018-12-14 | Outpatient (CLI) | payer OTHER, MEDICAID ==
[~2018-12-14] MED LIST changes: +NORCO 5-325 TA1 EACH PO
[2018-12-15 09:10] LABS: HEPATITIS B SURFACE AG Negative (Negative)
[2018-12-17 10:32] LABS: HEPATITIS C VIRUS ANTIBODY >11.0 s/co (0.0-0.9)
== END | disposition home or self-care (01) ==
LOC: RESCLI 01:09
PROVIDERS: Internal Medicine
DX: Z12.5 Encounter for screening for malignant neoplasm of prostate (principal); F20.9 Schizophrenia, unspecified; F90.9 Attention-deficit hyperactivity disorder, unspecified type; F48.2 Pseudobulbar affect; F32.9 Major depressive disorder, single episode, unspecified; G47.00 Insomnia, unspecified; K21.9 Gastro-esophageal reflux disease without esophagitis; R94.5 Abnormal results of liver function studies; Z76.89 Persons encountering health services in other specified circumstances; Z79.899 Other long term (current) drug therapy

== ENCOUNTER → 2019-03-26 | Outpatient (CLI) | payer OTHER, MEDICAID ==
[2019-03-26 12:14] LABS: ALBUMIN 3.8 gm/dl (3.1-4.5); ALKALINE PHOSPHATASE 109 U/L (45-117); BUN 12 mg/dl (7-24); CHLORIDE 108 mmol/L (98-107); CREATININE 0.87 mg/dL (0.70-1.30); POTASSIUM 4.2 mmol/L (3.5-5.1); SGOT/AST 54 IU/L (3-35); SGPT/ALT 47 U/L (12-78); SODIUM 141 mmol/L (136-145); TOTAL PROTEIN 9.2 gm/dL (6.4-8.2)
[2019-03-27 07:10] LABS: HEPATITIS B SURFACE AB 006395 Reactive (.)
[2019-03-27 10:09] LABS: CREATININE,URINE 230.5 mg/dL (Not Estab.)
[2019-03-27 22:05] LABS: HCV LOG10 7.097 (.); HCV RNA (INTERNATION UNIT) 12500000 IU/mL (.); HEPATITIS C QUANTITATION See Final Results IU/mL (.)
== END | disposition home or self-care (01) ==
LOC: RESCLI 01:11
PROVIDERS: Internal Medicine
DX: B18.2 Chronic viral hepatitis C (principal); F20.9 Schizophrenia, unspecified; F90.9 Attention-deficit hyperactivity disorder, unspecified type; G47.00 Insomnia, unspecified; F32.9 Major depressive disorder, single episode, unspecified; K21.9 Gastro-esophageal reflux disease without esophagitis; J01.90 Acute sinusitis, unspecified; R97.20 Elevated prostate specific antigen [PSA]; Z79.899 Other long term (current) drug therapy

== ENCOUNTER → 2019-04-12 | Outpatient (CLI) | payer OTHER, MEDICAID | END | disposition home or self-care (01) | LOC: LAB 10:20 → US 10:30 | DX: B18.2 Chronic viral hepatitis C (principal) ==

== ENCOUNTER → 2019-05-01 | Outpatient (CLI) | payer OTHER, MEDICAID | END | disposition home or self-care (01) | LOC: RESCLI 00:12 | DX: I10 Essential (primary) hypertension (principal); B18.2 Chronic viral hepatitis C; R97.20 Elevated prostate specific antigen [PSA]; K21.9 Gastro-esophageal reflux disease without esophagitis; G47.00 Insomnia, unspecified; F20.9 Schizophrenia, unspecified; F90.9 Attention-deficit hyperactivity disorder, unspecified type; F32.9 Major depressive disorder, single episode, unspecified; Z79.899 Other long term (current) drug therapy ==

== ENCOUNTER → 2019-05-02 | Outpatient (CLI) | payer OTHER, MEDICAID ==
[2019-05-02 11:15] LABS: BASO # 0.1 10*3/uL (0.0-0.1); BASO % 1.4 % (0.0-1.0); EOS # 0.1 10*3/uL (0.0-0.4); EOS % 1.6 % (1.0-4.0); HEMATOCRIT 44.3 % (42.0-52.0); HEMOGLOBIN 13.6 g/dl (14.0-18.0); LYMPH # 1.6 10*3/uL (1.3-4.4); LYMPH % 32.5 % (27.0-41.0); MEAN CELL VOLUME 85.7 fl (80.0-94.0); MEAN CORPUSCULAR HGB 26.3 pg (27.0-31.0); MEAN CORPUSCULAR HGB CONC 30.7 g/dl (33.0-37.0); MEAN PLATELET VOLUME 10.7 fl (9.6-12.3); MONO # 0.6 10*3/uL (0.1-1.0); MONO % 11.5 % (3.0-9.0); NEUT # 2.7 10*3/uL (2.3-7.9); NEUT % 52.8 % (47.0-73.0); PLATELET COUNT AUTOMATED 214 10*3/uL (130-400); RED BLOOD COUNT 5.17 10*6/uL (4.50-5.90); RED CELL DISTRI WIDTH 17.2 % (0-14.5)
[2019-05-02 11:26] LABS: ACT PARTIAL THROMBO TIME 23.6 SECONDS (20.0-32.1)
[2019-05-02 11:42] LABS: BILIRUBIN NEGATIVE (NEGATIVE); BLOOD NEGATIVE (NEGATIVE); CLARITY SL CLOUDY (CLEAR); COLOR YELLOW (YELLOW); GLUCOSE NEGATIVE (NEGATIVE); KETONE NEGATIVE (NEGATIVE); LEUKO ESTERASE TRACE (NEGATIVE); NITRITE NEGATIVE (NEGATIVE); SPECIFIC GRAVITY 1.015 (1.005-1.030); UROBILINOGEN 0.2 E.U./dl (0.2-1.0)
[2019-05-02 11:43] LABS: BACTERIA TRACE; EPITHELIAL CELLS 0-2; MUCOUS 1+
[2019-05-02 11:47] LABS: ALBUMIN 3.5 gm/dl (3.1-4.5); ALKALINE PHOSPHATASE 89 U/L (45-117); BUN 11 mg/dl (7-24); CHLORIDE 103 mmol/L (98-107); CREATININE 0.83 mg/dL (0.70-1.30); POTASSIUM 3.7 mmol/L (3.5-5.1); SGOT/AST 78 IU/L (3-35); SGPT/ALT 68 U/L (12-78); SODIUM 134 mmol/L (136-145); TOTAL PROTEIN 8.4 gm/dL (6.4-8.2)
== END | disposition home or self-care (01) ==
LOC: LAB 10:27 → US 12:30
PROVIDERS: Nurse Practitioner Family
DX: N28.89 Other specified disorders of kidney and ureter (principal); D40.0 Neoplasm of uncertain behavior of prostate; R53.83 Other fatigue

== ENCOUNTER → 2019-05-09 | Outpatient (CLI) | payer OTHER, MEDICAID | END | disposition home or self-care (01) | LOC: RESCLI 01:13 | DX: D50.0 Iron deficiency anemia secondary to blood loss (chronic) (principal); K22.2 Esophageal obstruction; K21.9 Gastro-esophageal reflux disease without esophagitis; D12.0 Benign neoplasm of cecum; F20.9 Schizophrenia, unspecified; F90.9 Attention-deficit hyperactivity disorder, unspecified type; F48.2 Pseudobulbar affect; F32.9 Major depressive disorder, single episode, unspecified; G47.00 Insomnia, unspecified; B18.2 Chronic viral hepatitis C; R97.20 Elevated prostate specific antigen [PSA]; I10 Essential (primary) hypertension; J01.90 Acute sinusitis, unspecified; F43.12 Post-traumatic stress disorder, chronic; K56.609 Unspecified intestinal obstruction, unspecified as to partial versus complete obstruction; Z79.899 Other long term (current) drug therapy ==

== ENCOUNTER → 2019-05-29 | Outpatient (CLI) | payer OTHER, MEDICAID ==
[2019-05-29 13:53] LABS: BASO # 0.1 10*3/uL (0.0-0.1); BASO % 1.3 % (0.0-1.0); EOS # 0.1 10*3/uL (0.0-0.4); EOS % 1.6 % (1.0-4.0); HEMATOCRIT 41.8 % (42.0-52.0); HEMOGLOBIN 13.5 g/dl (14.0-18.0); LYMPH # 2.4 10*3/uL (1.3-4.4); LYMPH % 33.9 % (27.0-41.0); MEAN CORPUSCULAR HGB 28.4 pg (27.0-31.0); MEAN CORPUSCULAR HGB CONC 32.3 g/dl (33.0-37.0); MONO # 0.5 10*3/uL (0.1-1.0); MONO % 7.6 % (3.0-9.0); NEUT # 3.9 10*3/uL (2.3-7.9); NEUT % 55.5 % (47.0-73.0); PLATELET COUNT AUTOMATED 376 10*3/uL (130-400); RED BLOOD COUNT 4.75 10*6/uL (4.50-5.90); RED CELL DISTRI WIDTH 15.3 % (0-14.5)
[2019-05-29 14:08] LABS: ALBUMIN 3.5 gm/dl (3.1-4.5); ALKALINE PHOSPHATASE 90 U/L (45-117); BUN 12 mg/dl (7-24); CHLORIDE 107 mmol/L (98-107); CREATININE 0.85 mg/dL (0.70-1.30); POTASSIUM 4.3 mmol/L (3.5-5.1); SGOT/AST 18 IU/L (3-35); SGPT/ALT 17 U/L (12-78); SODIUM 139 mmol/L (136-145); TOTAL PROTEIN 8.5 gm/dL (6.4-8.2)
== END | disposition home or self-care (01) ==
LOC: LAB 13:10
PROVIDERS: Student in an Organized Health Care Education/Training Program
DX: I10 Essential (primary) hypertension (principal); D50.0 Iron deficiency anemia secondary to blood loss (chronic)

== ENCOUNTER → 2019-07-03 | Outpatient (CLI) | payer OTHER, MEDICAID ==
[2019-07-03 12:08] LABS: BASO # 0.1 10*3/uL (0.0-0.1); EOS # 0.2 10*3/uL (0.0-0.4); EOS % 2.2 % (1.0-4.0); HEMATOCRIT 40.7 % (42.0-52.0); LYMPH # 2.7 10*3/uL (1.3-4.4); LYMPH % 32.9 % (27.0-41.0); MEAN CELL VOLUME 88.5 fl (80.0-94.0); MEAN CORPUSCULAR HGB 29.6 pg (27.0-31.0); MEAN CORPUSCULAR HGB CONC 33.4 g/dl (33.0-37.0); MEAN PLATELET VOLUME 10.6 fl (9.6-12.3); MONO # 0.7 10*3/uL (0.1-1.0); NEUT # 4.6 10*3/uL (2.3-7.9); NEUT % 55.7 % (47.0-73.0); PLATELET COUNT AUTOMATED 296 10*3/uL (130-400); RED CELL DISTRI WIDTH 14.7 % (0-14.5); WHITE BLOOD COUNT 8.3 10*3/uL (4.8-10.8)
[2019-07-03 12:39] LABS: ALBUMIN 3.5 gm/dl (3.1-4.5); ALKALINE PHOSPHATASE 71 U/L (45-117); BUN 17 mg/dl (7-24); CHLORIDE 106 mmol/L (98-107); CHOLESTEROL 208 mg/dL (<200); CREATININE 0.72 mg/dL (0.70-1.30); HDL CHOLESTEROL 30 mg/dl (40-60); LDL CHOLESTEROL 143 mg/dL (9-159); POTASSIUM 4.1 mmol/L (3.5-5.1); SGOT/AST 19 IU/L (3-35); SGPT/ALT 23 U/L (12-78); SODIUM 140 mmol/L (136-145); TRIGLYCERIDES 174 mg/dl (<150); VLDL CHOLESTEROL 35 mg/dL (6-40)
[2019-07-10 12:05] LABS: HEPATITIS C QUANTITATION HCV Not Detected IU/mL (.)
== END | disposition home or self-care (01) ==
LOC: LAB 11:05
PROVIDERS: Internal Medicine
DX: B18.2 Chronic viral hepatitis C (principal); D50.0 Iron deficiency anemia secondary to blood loss (chronic); I10 Essential (primary) hypertension; Z79.899 Other long term (current) drug therapy

== ENCOUNTER 2019-08-01 14:31 | Emergency (ER) | payer OTHER, MEDICAID ==
[~2019-08-01] VITALS: Ht 162.5 cm; Wt 72.6 kg
[2019-08-01 14:37] VITALS: BP 143/85
[2019-08-01 15:20] LABS: BASO # 0.1 10*3/uL (0.0-0.1); BASO % 1.2 % (0.0-1.0); EOS # 0.2 10*3/uL (0.0-0.4); EOS % 3.1 % (1.0-4.0); LYMPH # 2.4 10*3/uL (1.3-4.4); LYMPH % 31.6 % (27.0-41.0); MEAN CELL VOLUME 86.7 fl (80.0-94.0); MEAN CORPUSCULAR HGB CONC 34.6 g/dl (33.0-37.0); MONO # 0.7 10*3/uL (0.1-1.0); NEUT # 4.1 10*3/uL (2.3-7.9); NEUT % 54.8 % (47.0-73.0); PLATELET COUNT AUTOMATED 255 10*3/uL (130-400); RED CELL DISTRI WIDTH 14.1 % (0-14.5); WHITE BLOOD COUNT 7.5 10*3/uL (4.8-10.8)
[2019-08-01 15:33] LABS: ACT PARTIAL THROMBO TIME 23.4 SECONDS (20.0-32.1); INTERNATIONAL NORM RATIO 0.9 (2.0-3.5)
[2019-08-01 15:34] LABS: ALBUMIN 3.8 gm/dl (3.1-4.5); ALKALINE PHOSPHATASE 61 U/L (45-117); BUN 11 mg/dl (7-24); CHLORIDE 107 mmol/L (98-107); CREATININE 0.73 mg/dL (0.70-1.30); LIPASE 161 U/L (73-393); SGOT/AST 21 IU/L (3-35); SGPT/ALT 24 U/L (12-78); SODIUM 138 mmol/L (136-145); TOTAL PROTEIN 8.2 gm/dL (6.4-8.2)
[2019-08-01 15:50] LABS: BILIRUBIN NEGATIVE (NEGATIVE); BLOOD NEGATIVE (NEGATIVE); CLARITY CLEAR (CLEAR); COLOR YELLOW (YELLOW); GLUCOSE NEGATIVE (NEGATIVE); KETONE NEGATIVE (NEGATIVE)
[2019-08-01 15:51] LABS: LEUKO ESTERASE 2+ (NEGATIVE); NITRITE NEGATIVE (NEGATIVE); UROBILINOGEN 0.2 E.U./dl (0.2-1.0)
[2019-08-01 15:52] LABS: BACTERIA TRACE
[2019-08-01] MEDS ORDERED: CYCLOBENZAPRINE10 MG PO ×2 (18:12→18:13)
[2019-08-23] MEDS ORDERED: ZESTRIL10 MG PO (13:52)
[2019-08-23] MEDS ORDERED: MAVYRET 100-401 EACH PO (13:53)
[2019-08-23] MEDS ORDERED: FINASTERIDE5 M1 PO (13:57)
[2019-08-23] MEDS ORDERED: TAMSULOSIN HCL0.4 MG PO (13:57)
== END 2019-08-01 18:21 | disposition home or self-care (01) ==
LOC: ED 14:31
PROVIDERS: Emergency Medicine
DX: G89.29 Other chronic pain (principal); M54.5 Low back pain; R10.84 Generalized abdominal pain; M54.9 Dorsalgia, unspecified; I10 Essential (primary) hypertension; G43.909 Migraine, unspecified, not intractable, without status migrainosus; Z88.6 Allergy status to analgesic agent; Z88.8 Allergy status to other drugs, medicaments and biological substances; Z79.899 Other long term (current) drug therapy

== ENCOUNTER → 2019-08-23 | Outpatient (CLI) | payer OTHER, MEDICAID ==
[~2019-08-23] MED LIST changes: +CYCLOBENZAPRINE10 MG PO; +FINASTERIDE5 M1 PO; +MAVYRET 100-401 EACH PO; +TAMSULOSIN HCL0.4 MG PO; +ZESTRIL10 MG PO
== END | disposition home or self-care (01) ==
LOC: COVID19 00:32
DX: Z01.818 Encounter for other preprocedural examination (principal); Z11.59 Encounter for screening for other viral diseases; K43.2 Incisional hernia without obstruction or gangrene

== ENCOUNTER 2019-08-29 09:51 | Inpatient (IN) | payer OTHER, MEDICAID ==
[2019-08-23 13:51] VITALS: BP 123/84
[~2019-08-29] VITALS: Ht 162.6 cm; Wt 74.8 kg
[2019-08-29] VITALS (12 sets, daily range): BP systolic 139–196; BP diastolic 63–119
[2019-08-29 12:37] LABS: BASO % 0.3 % (0.0-1.0); EOS # 0.1 10*3/uL (0.0-0.4); EOS % 0.7 % (1.0-4.0); HEMATOCRIT 39.8 % (42.0-52.0); LYMPH # 1.1 10*3/uL (1.3-4.4); LYMPH % 9.1 % (27.0-41.0); MEAN CORPUSCULAR HGB CONC 33.7 g/dl (33.0-37.0); MONO # 0.7 10*3/uL (0.1-1.0); MONO % 5.6 % (3.0-9.0); PLATELET COUNT AUTOMATED 232 10*3/uL (130-400); RED BLOOD COUNT 4.47 10*6/uL (4.50-5.90); RED CELL DISTRI WIDTH 13.4 % (0-14.5); WHITE BLOOD COUNT 11.9 10*3/uL (4.8-10.8)
[2019-08-29 12:52] LABS: ALBUMIN 3.7 gm/dl (3.1-4.5); ALKALINE PHOSPHATASE 66 U/L (45-117); BUN 12 mg/dl (7-24); CHLORIDE 106 mmol/L (98-107); CREATININE 0.76 mg/dL (0.70-1.30); SGOT/AST 22 IU/L (3-35); SGPT/ALT 20 U/L (12-78); SODIUM 137 mmol/L (136-145); TOTAL PROTEIN 7.8 gm/dL (6.4-8.2)
[2019-08-30] VITALS: BP 139/89
[2019-08-30 06:30] LABS: BILIRUBIN NEGATIVE (NEGATIVE); BLOOD TRACE-INTACT (NEGATIVE); CLARITY CLEAR (CLEAR); COLOR YELLOW (YELLOW); EPITHELIAL CELLS 0-2; GLUCOSE NEGATIVE (NEGATIVE); KETONE NEGATIVE (NEGATIVE); LEUKO ESTERASE 1+ (NEGATIVE); MUCOUS TRACE; NITRITE NEGATIVE (NEGATIVE); SPECIFIC GRAVITY 1.015 (1.005-1.030); UROBILINOGEN 0.2 E.U./dl (0.2-1.0); WBC 21-30 wbc/hpf (0-5)
[2019-08-30 06:31] LABS: BACTERIA TRACE
[2019-08-30 06:42] LABS: BASO % 0.4 % (0.0-1.0); EOS % 0.3 % (1.0-4.0); HEMATOCRIT 38.6 % (42.0-52.0); LYMPH # 1.3 10*3/uL (1.3-4.4); LYMPH % 13.1 % (27.0-41.0); MEAN CELL VOLUME 88.5 fl (80.0-94.0); MEAN CORPUSCULAR HGB 29.8 pg (27.0-31.0); MEAN CORPUSCULAR HGB CONC 33.7 g/dl (33.0-37.0); MEAN PLATELET VOLUME 10.4 fl (9.6-12.3); MONO # 0.8 10*3/uL (0.1-1.0); MONO % 7.7 % (3.0-9.0); NEUT # 7.7 10*3/uL (2.3-7.9); NEUT % 78.1 % (47.0-73.0); PLATELET COUNT AUTOMATED 218 10*3/uL (130-400); RED BLOOD COUNT 4.36 10*6/uL (4.50-5.90); RED CELL DISTRI WIDTH 13.6 % (0-14.5); WHITE BLOOD COUNT 9.8 10*3/uL (4.8-10.8)
[2019-08-30 06:55] LABS: ALBUMIN 3.3 gm/dl (3.1-4.5); ALKALINE PHOSPHATASE 62 U/L (45-117); BUN 9 mg/dl (7-24); CHLORIDE 104 mmol/L (98-107); CREATININE 0.81 mg/dL (0.70-1.30); POTASSIUM 3.9 mmol/L (3.5-5.1); SGOT/AST 21 IU/L (3-35); SGPT/ALT 18 U/L (12-78); SODIUM 135 mmol/L (136-145); TOTAL PROTEIN 7.8 gm/dL (6.4-8.2)
[2019-08-30 07:59] LABS: BILIRUBIN NEGATIVE (NEGATIVE); BLOOD NEGATIVE (NEGATIVE); CLARITY CLEAR (CLEAR); COLOR YELLOW (YELLOW); GLUCOSE NEGATIVE (NEGATIVE); KETONE NEGATIVE (NEGATIVE); NITRITE NEGATIVE (NEGATIVE); PH 6.5 (5.0-9.0); UROBILINOGEN 0.2 E.U./dl (0.2-1.0)
[2019-08-30 08:00] LABS: BACTERIA TRACE; LEUKO ESTERASE TRACE (NEGATIVE)
[2019-08-30 08:05] VITALS: BP 143/88
[2019-08-30 12:00] VITALS: BP 134/88
[2019-08-30 16:00] VITALS: BP 140/89
[2019-08-30 20:00] VITALS: BP 137/87
[2019-08-31] VITALS: BP 125/83
[2019-08-31 06:13] LABS: HEMATOCRIT 36.2 % (42.0-52.0); MEAN CELL VOLUME 89.8 fl (80.0-94.0); MEAN CORPUSCULAR HGB CONC 33.4 g/dl (33.0-37.0); MEAN PLATELET VOLUME 10.6 fl (9.6-12.3); PLATELET COUNT AUTOMATED 215 10*3/uL (130-400); RED BLOOD COUNT 4.03 10*6/uL (4.50-5.90); RED CELL DISTRI WIDTH 13.5 % (0-14.5); WHITE BLOOD COUNT 12.2 10*3/uL (4.8-10.8)
[2019-08-31 06:26] LABS: CHLORIDE 99 mmol/L (98-107); CREATININE 0.85 mg/dL (0.70-1.30); POTASSIUM 3.5 mmol/L (3.5-5.1); SODIUM 133 mmol/L (136-145)
[2019-08-31 06:34] LABS: BUN 26 mg/dl (7-24)
[2019-08-31 06:37] LABS: TOTAL CELLS COUNTED 100 #CELLS
[2019-08-31 06:38] LABS: PLATELET SUFFICIENCY NORMAL (NORMAL)
[2019-08-31 08:00] VITALS: BP 122/70
[2019-08-31 12:00] VITALS: BP 113/67
[2019-08-31 16:00] VITALS: BP 123/79
[2019-08-31 20:00] VITALS: BP 129/78
[2019-09-01] VITALS: BP 128/75
[2019-09-01 06:26] LABS: BASO % 0.2 % (0.0-1.0); EOS # 0.3 10*3/uL (0.0-0.4); EOS % 2.8 % (1.0-4.0); HEMATOCRIT 31.7 % (42.0-52.0); LYMPH # 1.2 10*3/uL (1.3-4.4); LYMPH % 11.5 % (27.0-41.0); MEAN CELL VOLUME 91.9 fl (80.0-94.0); MEAN CORPUSCULAR HGB 30.1 pg (27.0-31.0); MEAN CORPUSCULAR HGB CONC 32.8 g/dl (33.0-37.0); MEAN PLATELET VOLUME 10.8 fl (9.6-12.3); MONO # 0.8 10*3/uL (0.1-1.0); MONO % 7.1 % (3.0-9.0); NEUT # 8.2 10*3/uL (2.3-7.9); PLATELET COUNT AUTOMATED 200 10*3/uL (130-400); RED BLOOD COUNT 3.45 10*6/uL (4.50-5.90); RED CELL DISTRI WIDTH 13.7 % (0-14.5); WHITE BLOOD COUNT 10.5 10*3/uL (4.8-10.8)
[2019-09-01 07:01] LABS: ALBUMIN 2.8 gm/dl (3.1-4.5); ALKALINE PHOSPHATASE 52 U/L (45-117); CHLORIDE 101 mmol/L (98-107); CREATININE 0.73 mg/dL (0.70-1.30); POTASSIUM 3.7 mmol/L (3.5-5.1); SGOT/AST 15 IU/L (3-35); SGPT/ALT 10 U/L (12-78); SODIUM 136 mmol/L (136-145); TOTAL PROTEIN 6.7 gm/dL (6.4-8.2)
[2019-09-01 07:05] LABS: BUN 16 mg/dl (7-24)
[2019-09-01 08:00] VITALS: BP 118/76
[2019-09-01 12:00] VITALS: BP 115/60
[2019-09-01 16:00] VITALS: BP 126/73
[2019-09-01 20:00] VITALS: BP 122/72
[2019-09-02] VITALS: BP 119/71
[2019-09-02 07:06] LABS: BASO % 0.4 % (0.0-1.0); EOS # 0.2 10*3/uL (0.0-0.4); HEMATOCRIT 31.5 % (42.0-52.0); LYMPH # 1.4 10*3/uL (1.3-4.4); MEAN CELL VOLUME 90.3 fl (80.0-94.0); MEAN CORPUSCULAR HGB 29.8 pg (27.0-31.0); MEAN PLATELET VOLUME 10.1 fl (9.6-12.3); MONO % 9.6 % (3.0-9.0); NEUT # 7.8 10*3/uL (2.3-7.9); NEUT % 74.5 % (47.0-73.0); PLATELET COUNT AUTOMATED 256 10*3/uL (130-400); RED BLOOD COUNT 3.49 10*6/uL (4.50-5.90); RED CELL DISTRI WIDTH 13.3 % (0-14.5); WHITE BLOOD COUNT 10.5 10*3/uL (4.8-10.8)
[2019-09-02 08:00] VITALS: BP 124/71
[2019-09-02 12:00] VITALS: BP 123/65
[2019-09-02 12:12] LABS: HEMATOCRIT 30.4 % (42.0-52.0)
[2019-09-02 16:00] VITALS: BP 140/79
[2019-09-02] MEDS ORDERED: PROTONIX40 MG PO (17:09)
[2019-09-02] MEDS ORDERED: Carafate1 GM PO (17:09)
[2019-09-02] MEDS ORDERED: COLACE100 MG PO (17:12)
[2019-09-02] MEDS ORDERED: NORCO 5-325 TA1 EACH PO (17:12)
== END 2019-09-02 18:05 | disposition home or self-care (01) | DRG 355 ==
LOC: SDC 09:51 → 5E 11:21
PROVIDERS: Internal Medicine; Registered Nurse; Student in an Organized Health Care Education/Training Program; ADMIT Family Medicine
PROC: 0WUF4JZ Supplement Abdominal Wall with Synthetic Substitute, Percutaneous Endoscopic Approach (ICD-10-PCS; principal; 2019-08-29)
DX: K43.0 Incisional hernia with obstruction, without gangrene (principal); D72.829 Elevated white blood cell count, unspecified; R73.9 Hyperglycemia, unspecified; F41.9 Anxiety disorder, unspecified; F32.9 Major depressive disorder, single episode, unspecified; I10 Essential (primary) hypertension; F43.10 Post-traumatic stress disorder, unspecified; E66.3 Overweight; N40.0 Benign prostatic hyperplasia without lower urinary tract symptoms; D64.9 Anemia, unspecified; B19.20 Unspecified viral hepatitis C without hepatic coma; Z87.891 Personal history of nicotine dependence; Z82.49 Family history of ischemic heart disease and other diseases of the circulatory system; Z80.0 Family history of malignant neoplasm of digestive organs; Z88.8 Allergy status to other drugs, medicaments and biological substances; Z88.6 Allergy status to analgesic agent; Z79.899 Other long term (current) drug therapy

== ENCOUNTER → 2019-10-23 | Outpatient (CLI) | payer OTHER, MEDICAID ==
[~2019-10-23] MED LIST changes: +COLACE100 MG PO; +Carafate1 GM PO; +PROTONIX40 MG PO
== END | disposition home or self-care (01) ==
LOC: RESCLI 01:10
PROVIDERS: ATTEND Internal Medicine
DX: F20.9 Schizophrenia, unspecified (principal); F90.9 Attention-deficit hyperactivity disorder, unspecified type; G47.00 Insomnia, unspecified; F48.2 Pseudobulbar affect; F32.9 Major depressive disorder, single episode, unspecified; I10 Essential (primary) hypertension; K43.2 Incisional hernia without obstruction or gangrene; K21.9 Gastro-esophageal reflux disease without esophagitis; N40.0 Benign prostatic hyperplasia without lower urinary tract symptoms; I25.10 Atherosclerotic heart disease of native coronary artery without angina pectoris; Z79.899 Other long term (current) drug therapy; Z87.891 Personal history of nicotine dependence; Z98.890 Other specified postprocedural states

== ENCOUNTER → 2019-12-31 | Outpatient (CLI) | payer OTHER, MEDICAID ==
[2019-12-31 12:19] LABS: ALBUMIN 4.2 gm/dl (3.1-4.5); BUN 16 mg/dl (7-24); CHLORIDE 106 mmol/L (98-107); POTASSIUM 4.5 mmol/L (3.5-5.1); SGOT/AST 38 IU/L (3-35); SGPT/ALT 35 U/L (12-78); SODIUM 140 mmol/L (136-145)
[2019-12-31 12:20] LABS: ALKALINE PHOSPHATASE 91 U/L (45-117)
== END | disposition home or self-care (01) ==
LOC: RESCLI 00:51
PROVIDERS: Internal Medicine; ATTEND Family Medicine
DX: Z23 Encounter for immunization (principal); Z12.11 Encounter for screening for malignant neoplasm of colon; F32.9 Major depressive disorder, single episode, unspecified; F90.9 Attention-deficit hyperactivity disorder, unspecified type; K21.9 Gastro-esophageal reflux disease without esophagitis; N40.0 Benign prostatic hyperplasia without lower urinary tract symptoms; F20.9 Schizophrenia, unspecified; I10 Essential (primary) hypertension; I25.10 Atherosclerotic heart disease of native coronary artery without angina pectoris

== ENCOUNTER → 2020-06-23 | Outpatient (CLI) | payer OTHER, MEDICAID | END | disposition home or self-care (01) | LOC: RESCLI 00:25 | PROVIDERS: ATTEND Internal Medicine | DX: M25.571 Pain in right ankle and joints of right foot (principal); I10 Essential (primary) hypertension; K21.9 Gastro-esophageal reflux disease without esophagitis; I25.10 Atherosclerotic heart disease of native coronary artery without angina pectoris; K43.2 Incisional hernia without obstruction or gangrene; F20.9 Schizophrenia, unspecified; N40.0 Benign prostatic hyperplasia without lower urinary tract symptoms; F90.9 Attention-deficit hyperactivity disorder, unspecified type; F32.9 Major depressive disorder, single episode, unspecified; F48.2 Pseudobulbar affect; G47.00 Insomnia, unspecified; D12.0 Benign neoplasm of cecum; Z79.899 Other long term (current) drug therapy; Z98.890 Other specified postprocedural states; Z87.891 Personal history of nicotine dependence ==

== ENCOUNTER → 2020-06-24 | Outpatient (CLI) | payer OTHER, MEDICAID ==
[2020-06-24 10:34] LABS: BASO # 0.1 10*3/uL (0.0-0.1); BASO % 1.4 % (0.0-1.0); EOS # 0.2 10*3/uL (0.0-0.4); EOS % 2.3 % (1.0-4.0); HEMATOCRIT 42.2 % (42.0-52.0); LYMPH # 2.1 10*3/uL (1.3-4.4); LYMPH % 29.8 % (27.0-41.0); MEAN CELL VOLUME 94.4 fl (80.0-94.0); MEAN CORPUSCULAR HGB 30.6 pg (27.0-31.0); MEAN CORPUSCULAR HGB CONC 32.5 g/dl (33.0-37.0); MEAN PLATELET VOLUME 10.3 fl (9.6-12.3); MONO # 0.6 10*3/uL (0.1-1.0); MONO % 8.4 % (3.0-9.0); NEUT % 57.8 % (47.0-73.0); PLATELET COUNT AUTOMATED 212 10*3/uL (130-400); RED BLOOD COUNT 4.47 10*6/uL (4.50-5.90); RED CELL DISTRI WIDTH 13.6 % (0-14.5)
[2020-06-24 11:00] LABS: ALBUMIN 3.7 gm/dl (3.1-4.5); ALKALINE PHOSPHATASE 83 U/L (45-117); BUN 14 mg/dl (7-24); CHLORIDE 108 mmol/L (98-107); CHOLESTEROL 283 mg/dL (<200); CREATININE 0.86 mg/dL (0.70-1.30); HDL CHOLESTEROL 53 mg/dl (40-60); LDL CHOLESTEROL 167 mg/dL (9-159); POTASSIUM 4.7 mmol/L (3.5-5.1); SGOT/AST 37 IU/L (3-35); SGPT/ALT 32 U/L (12-78); SODIUM 140 mmol/L (136-145); TOTAL PROTEIN 8.3 gm/dL (6.4-8.2); TRIGLYCERIDES 317 mg/dl (<150); VLDL CHOLESTEROL 63 mg/dL (6-40)
[2020-06-24 11:33] LABS: VITAMIN D, 25-HYDROXY 21.4 ng/mL (30-100)
== END | disposition home or self-care (01) ==
LOC: LAB 10:13
PROVIDERS: Internal Medicine; ATTEND Emergency Medicine
DX: M85.871 Other specified disorders of bone density and structure, right ankle and foot (principal); E55.9 Vitamin D deficiency, unspecified; Z79.899 Other long term (current) drug therapy; Z96.698 Presence of other orthopedic joint implants

== ENCOUNTER → 2020-07-23 | Day surgery (SDC) | payer OTHER, MEDICAID ==
[~2020-07-23] VITALS: Ht 162.5 cm; Wt 63.5 kg
[~2020-07-23] MED LIST changes: +DEXILANT60 M1 PO; +LIPITOR40 MG PO
[2020-07-23 08:44] VITALS: BP 147/94
[2020-07-23 09:15] VITALS: BP 113/64
[2020-07-23 09:26] VITALS: BP 120/64
[2020-07-23 09:44] VITALS: BP 126/33
== END | disposition home or self-care (01) ==
LOC: SDC 07-20 12:30
PROVIDERS: ATTEND Surgery
DX: Z12.11 Encounter for screening for malignant neoplasm of colon (principal); D12.5 Benign neoplasm of sigmoid colon; D12.0 Benign neoplasm of cecum; K57.30 Diverticulosis of large intestine without perforation or abscess without bleeding; K29.50 Unspecified chronic gastritis without bleeding; I10 Essential (primary) hypertension; F41.9 Anxiety disorder, unspecified; F32.9 Major depressive disorder, single episode, unspecified; Z87.891 Personal history of nicotine dependence; K21.9 Gastro-esophageal reflux disease without esophagitis; Z79.899 Other long term (current) drug therapy; Z20.822 Contact with and (suspected) exposure to COVID-19

== ENCOUNTER 2020-10-25 07:29 | Emergency (ER) | payer OTHER, MEDICAID ==
[2020-10-25 07:43] VITALS: BP 143/96
== END 2020-10-25 08:58 | disposition home or self-care (01) ==
LOC: ED 07:29
DX: S49.92XA Unspecified injury of left shoulder and upper arm, initial encounter (principal); S59.902A Unspecified injury of left elbow, initial encounter; S59.912A Unspecified injury of left forearm, initial encounter; M79.602 Pain in left arm; I10 Essential (primary) hypertension; Z88.6 Allergy status to analgesic agent; Z88.8 Allergy status to other drugs, medicaments and biological substances; Z79.899 Other long term (current) drug therapy; Z87.891 Personal history of nicotine dependence; W18.2XXA Fall in (into) shower or empty bathtub, initial encounter; Y93.89 Activity, other specified; Y92.89 Other specified places as the place of occurrence of the external cause; Y99.8 Other external cause status

== ENCOUNTER → 2021-05-18 | Outpatient (CLI) | payer OTHER, MEDICAID ==
[2021-05-18 16:13] LABS: BILIRUBIN Negative (Negative); BLOOD Negative (Negative); CLARITY Clear (Clear); COLOR Yellow (Yellow); GLUCOSE Negative (Negative); KETONE Negative (Negative); LEUKO ESTERASE Trace (Negative); NITRITE Negative (Negative); PH 5.5 (4.5-8.0); SPECIFIC GRAVITY <= 1.005 (1.001-1.030); UROBILINOGEN 0.2 E.U./dl (0.0-1.0)
[2021-05-18 16:15] LABS: BASO # 0.1 10*3/uL (0.0-0.1); BASO % 1.1 % (0.0-1.0); EOS # 0.1 10*3/uL (0.0-0.4); EOS % 0.9 % (1.0-4.0); LYMPH # 1.9 10*3/uL (1.3-4.4); MEAN CELL VOLUME 90.3 fl (80.0-94.0); MEAN CORPUSCULAR HGB 30.5 pg (27.0-31.0); MEAN CORPUSCULAR HGB CONC 33.7 g/dl (33.0-37.0); MEAN PLATELET VOLUME 10.7 fl (9.6-12.3); MONO # 0.5 10*3/uL (0.1-1.0); MONO % 7.5 % (3.0-9.0); NEUT # 3.9 10*3/uL (2.3-7.9); NEUT % 60.3 % (47.0-73.0); PLATELET COUNT AUTOMATED 254 10*3/uL (130-400); RED BLOOD COUNT 4.76 10*6/uL (4.50-5.90); WHITE BLOOD COUNT 6.4 10*3/uL (4.8-10.8)
[2021-05-18 16:29] LABS: ALKALINE PHOSPHATASE 78 U/L (45-117); BUN 10 mg/dl (7-24); CHLORIDE 106 mmol/L (98-107); CREATININE 0.82 mg/dL (0.70-1.30); POTASSIUM 3.9 mmol/L (3.5-5.1); SGOT/AST 54 IU/L (3-35); SGPT/ALT 56 U/L (12-78); SODIUM 140 mmol/L (136-145); TOTAL PROTEIN 8.6 gm/dL (6.4-8.2)
[2021-05-18 16:32] LABS: BACTERIA TRACE; MUCOUS TRACE; RBC 0-2 rbc/hpf (0-2)
[2021-05-19 04:04] LABS: TOTAL PROTEIN, SERUM 8.1 g/dL (6.0-8.5)
[2021-05-19 05:05] LABS: RHEUMATOID FACTOR 29.9 IU/mL (<14.0)
[2021-05-19 13:05] LABS: ANTI-DSDNA ANTIBODIES <1 IU/mL (0-9); ANTI-RNP ANTIBODIES 0.4 AI (0.0-0.9); ANTICHROMATIN ANTIBODIES <0.2 AI (0.0-0.9); ANTISCLERODERMA-70 AB <0.2 AI (0.0-0.9); SJOGREN ANTI-SS-A <0.2 AI (0.0-0.9); SJOREN AB, ANTI-SS-B <0.2 AI (0.0-0.9)
[2021-05-19 15:06] LABS: ALBUMIN 4.1 g/dL (2.9-4.4); ALPHA-1-GLOBULIN 0.3 g/dL (0.0-0.4); ALPHA-2-GLOBULIN 0.9 g/dL (0.4-1.0); BETA GLOBULIN 1.4 g/dL (0.7-1.3); GAMMA GLOBULIN 1.5 g/dL (0.4-1.8); M-SPIKE Not Observed g/dL (Not Observed)
[2021-05-20 15:05] LABS: ALBUMIN, URINE 31.8 % (.); ALPHA-1-GLOBULIN, URINE 19.3 % (.); BETA GLOBULIN, URINE 18.1 % (.); GAMMA GLOBULIN, URINE 7.9 % (.); M-SPIKE, % Not Observed % (Not Observed); PROTEIN,TOTAL - URINE RANDOM <4.0 mg/dL (Not Estab.)
== END | disposition home or self-care (01) ==
LOC: RESCLI 00:39
PROVIDERS: Internal Medicine; ATTEND Internal Medicine
DX: M25.60 Stiffness of unspecified joint, not elsewhere classified (principal); F20.9 Schizophrenia, unspecified; N40.0 Benign prostatic hyperplasia without lower urinary tract symptoms; F90.9 Attention-deficit hyperactivity disorder, unspecified type; F32.9 Major depressive disorder, single episode, unspecified; F48.2 Pseudobulbar affect; G47.33 Obstructive sleep apnea (adult) (pediatric); I10 Essential (primary) hypertension; K21.9 Gastro-esophageal reflux disease without esophagitis; E78.5 Hyperlipidemia, unspecified; E55.9 Vitamin D deficiency, unspecified; Z79.899 Other long term (current) drug therapy

== ENCOUNTER → 2021-08-04 | Outpatient (CLI) | payer OTHER, MEDICAID | END | disposition home or self-care (01) | LOC: RESCLI 01:51 | PROVIDERS: ATTEND Family Medicine | DX: I10 Essential (primary) hypertension (principal); K21.9 Gastro-esophageal reflux disease without esophagitis; F32.9 Major depressive disorder, single episode, unspecified; F90.9 Attention-deficit hyperactivity disorder, unspecified type; F48.2 Pseudobulbar affect; F20.9 Schizophrenia, unspecified; F41.9 Anxiety disorder, unspecified; M25.571 Pain in right ankle and joints of right foot; E78.5 Hyperlipidemia, unspecified; G89.29 Other chronic pain; E55.9 Vitamin D deficiency, unspecified; R21 Rash and other nonspecific skin eruption; N40.0 Benign prostatic hyperplasia without lower urinary tract symptoms; Z79.899 Other long term (current) drug therapy ==

== ENCOUNTER → 2021-08-09 | Outpatient (CLI) | payer OTHER, MEDICAID | END | disposition home or self-care (01) | LOC: RAD 10:26 | PROVIDERS: ATTEND Internal Medicine | DX: M25.571 Pain in right ankle and joints of right foot (principal) ==

== ENCOUNTER → 2021-09-09 | Outpatient (CLI) | payer OTHER, MEDICAID | END | disposition home or self-care (01) | LOC: CT 11:00 | PROVIDERS: ATTEND Podiatrist | DX: M19.071 Primary osteoarthritis, right ankle and foot (principal) ==

== ENCOUNTER → 2022-03-03 | Outpatient (CLI) | payer OTHER, MEDICAID ==
[2022-03-03 11:26] LABS: BASO # 0.1 10*3/uL (0.0-0.1); BASO % 1.4 % (0.0-1.0); EOS # 0.1 10*3/uL (0.0-0.4); EOS % 1.4 % (1.0-4.0); HEMATOCRIT 44.7 % (42.0-52.0); LYMPH # 2.1 10*3/uL (1.3-4.4); LYMPH % 25.6 % (27.0-41.0); MEAN CORPUSCULAR HGB 30.8 pg (27.0-31.0); MEAN CORPUSCULAR HGB CONC 33.8 g/dl (33.0-37.0); MEAN PLATELET VOLUME 10.5 fl (9.6-12.3); MONO # 0.7 10*3/uL (0.1-1.0); NEUT # 5.2 10*3/uL (2.3-7.9); NEUT % 63.4 % (47.0-73.0); PLATELET COUNT AUTOMATED 257 10*3/uL (130-400); RED BLOOD COUNT 4.91 10*6/uL (4.50-5.90); RED CELL DISTRI WIDTH 12.8 % (0-14.5); WHITE BLOOD COUNT 8.1 10*3/uL (4.8-10.8)
[2022-03-03 11:41] LABS: ALKALINE PHOSPHATASE 63 U/L (46-116); BUN 16 mg/dl (9-23); CHLORIDE 104 mmol/L (98-107); CHOLESTEROL 280 mg/dL (<200); LDL CHOLESTEROL 161 mg/dL (9-159); POTASSIUM 4.1 mmol/L (3.4-5.1); SGPT/ALT 23 U/L (10-49); TRIGLYCERIDES 345 mg/dl (<150)
== END | disposition home or self-care (01) ==
LOC: RESCLI 10:28
PROVIDERS: Internal Medicine; ATTEND Student in an Organized Health Care Education/Training Program
DX: R07.9 Chest pain, unspecified (principal); I10 Essential (primary) hypertension; K21.9 Gastro-esophageal reflux disease without esophagitis; F32.9 Major depressive disorder, single episode, unspecified; F90.9 Attention-deficit hyperactivity disorder, unspecified type; F48.2 Pseudobulbar affect; F20.9 Schizophrenia, unspecified; N40.0 Benign prostatic hyperplasia without lower urinary tract symptoms; F41.9 Anxiety disorder, unspecified; G47.00 Insomnia, unspecified; E78.5 Hyperlipidemia, unspecified; E55.9 Vitamin D deficiency, unspecified; Z87.891 Personal history of nicotine dependence; Z72.89 Other problems related to lifestyle; Z79.02 Long term (current) use of antithrombotics/antiplatelets; Z79.899 Other long term (current) drug therapy

== ENCOUNTER → 2022-03-07 | Outpatient (CLI) | payer OTHER, MEDICAID | END | disposition home or self-care (01) | LOC: RAD 08:43 | PROVIDERS: ATTEND Student in an Organized Health Care Education/Training Program | DX: R07.9 Chest pain, unspecified (principal) ==

== ENCOUNTER → 2022-12-15 | Outpatient (CLI) | payer OTHER, MEDICAID ==
[2022-12-15 09:40] LABS: BASO # 0.1 10*3/uL (0.0-0.1); BASO % 0.9 % (0.0-1.0); EOS # 0.1 10*3/uL (0.0-0.4); EOS % 1.5 % (1.0-4.0); HEMATOCRIT 43.5 % (42.0-52.0); LYMPH % 29.5 % (27.0-41.0); MEAN CELL VOLUME 92.8 fl (80.0-94.0); MEAN CORPUSCULAR HGB 30.9 pg (27.0-31.0); MEAN CORPUSCULAR HGB CONC 33.3 g/dl (33.0-37.0); MEAN PLATELET VOLUME 10.5 fl (9.6-12.3); MONO # 0.6 10*3/uL (0.1-1.0); NEUT # 4.1 10*3/uL (2.3-7.9); PLATELET COUNT AUTOMATED 201 10*3/uL (130-400); RED BLOOD COUNT 4.69 10*6/uL (4.50-5.90); RED CELL DISTRI WIDTH 12.9 % (0-14.5); WHITE BLOOD COUNT 6.9 10*3/uL (4.8-10.8)
[2022-12-15 10:11] LABS: ALKALINE PHOSPHATASE 78 U/L (46-116); BUN 13 mg/dl (9-23); CHLORIDE 105 mmol/L (98-107); POTASSIUM 4.3 mmol/L (3.4-5.1); SGPT/ALT 41 U/L (10-49); TOTAL PROTEIN 7.9 gm/dL (6.0-8.0)
== END | disposition home or self-care (01) ==
LOC: RESCLI 07:56
PROVIDERS: Student in an Organized Health Care Education/Training Program; ATTEND Student in an Organized Health Care Education/Training Program
DX: Z01.89 Encounter for other specified special examinations (principal); Z00.00 Encounter for general adult medical examination without abnormal findings; I10 Essential (primary) hypertension; E03.9 Hypothyroidism, unspecified; E78.5 Hyperlipidemia, unspecified; F17.210 Nicotine dependence, cigarettes, uncomplicated; F10.90 Alcohol use, unspecified, uncomplicated; D50.0 Iron deficiency anemia secondary to blood loss (chronic); E55.9 Vitamin D deficiency, unspecified; E11.9 Type 2 diabetes mellitus without complications; H81.11 Benign paroxysmal vertigo, right ear; M54.50 Low back pain, unspecified; K21.9 Gastro-esophageal reflux disease without esophagitis; E78.2 Mixed hyperlipidemia; Z79.899 Other long term (current) drug therapy

== ENCOUNTER → 2023-02-03 | Outpatient (CLI) | payer OTHER, MEDICAID | END | disposition home or self-care (01) | LOC: CT 09:37 | PROVIDERS: ATTEND Internal Medicine | DX: F90.9 Attention-deficit hyperactivity disorder, unspecified type (principal); E78.5 Hyperlipidemia, unspecified; N40.0 Benign prostatic hyperplasia without lower urinary tract symptoms; G47.00 Insomnia, unspecified; F48.2 Pseudobulbar affect ==

== ENCOUNTER → 2023-03-16 | Outpatient (CLI) | payer OTHER, MEDICAID | END | disposition home or self-care (01) | LOC: RESCLI 01:20 | PROVIDERS: ATTEND Family Medicine | DX: I10 Essential (primary) hypertension (principal); E78.5 Hyperlipidemia, unspecified; K21.9 Gastro-esophageal reflux disease without esophagitis; R51.9 Headache, unspecified; F90.9 Attention-deficit hyperactivity disorder, unspecified type; N40.0 Benign prostatic hyperplasia without lower urinary tract symptoms; G47.00 Insomnia, unspecified; F41.9 Anxiety disorder, unspecified; F48.2 Pseudobulbar affect; F32.9 Major depressive disorder, single episode, unspecified; Z79.899 Other long term (current) drug therapy ==

== ENCOUNTER → 2023-04-19 | Outpatient (CLI) | payer OTHER, MEDICAID | END | disposition home or self-care (01) | LOC: RESCLI 04:56 | PROVIDERS: ATTEND Internal Medicine | DX: K21.9 Gastro-esophageal reflux disease without esophagitis (principal); F90.9 Attention-deficit hyperactivity disorder, unspecified type; F48.2 Pseudobulbar affect; G47.00 Insomnia, unspecified; I10 Essential (primary) hypertension; E78.5 Hyperlipidemia, unspecified; E55.9 Vitamin D deficiency, unspecified; K43.2 Incisional hernia without obstruction or gangrene; R51.9 Headache, unspecified; Z79.899 Other long term (current) drug therapy; N40.0 Benign prostatic hyperplasia without lower urinary tract symptoms ==

== ENCOUNTER → 2023-07-20 | Outpatient (CLI) | payer OTHER, MEDICAID ==
[2023-07-20 10:59] LABS: BASO # 0.1 10*3/uL (0.0-0.1); BASO % 1.2 % (0.0-1.0); EOS # 0.1 10*3/uL (0.0-0.4); EOS % 0.9 % (1.0-4.0); HEMATOCRIT 40.7 % (42.0-52.0); LYMPH # 1.7 10*3/uL (1.3-4.4); LYMPH % 24.3 % (27.0-41.0); MEAN CELL VOLUME 93.6 fl (80.0-94.0); MEAN CORPUSCULAR HGB CONC 33.2 g/dl (33.0-37.0); MEAN PLATELET VOLUME 9.8 fl (9.6-12.3); MONO # 0.5 10*3/uL (0.1-1.0); MONO % 7.5 % (3.0-9.0); NEUT # 4.5 10*3/uL (2.3-7.9); NEUT % 65.8 % (47.0-73.0); PLATELET COUNT AUTOMATED 211 10*3/uL (130-400); RED BLOOD COUNT 4.35 10*6/uL (4.50-5.90); RED CELL DISTRI WIDTH 12.9 % (0-14.5); WHITE BLOOD COUNT 6.9 10*3/uL (4.8-10.8)
[2023-07-20 11:35] LABS: ALKALINE PHOSPHATASE 84 U/L (46-116); BUN 11 mg/dl (9-23); CHLORIDE 105 mmol/L (98-107); CHOLESTEROL 239 mg/dL (<200); LDL CHOLESTEROL 122 mg/dL (9-159); POTASSIUM 4.2 mmol/L (3.4-5.1); SGPT/ALT 46 U/L (5-49); TOTAL PROTEIN 7.9 gm/dL (6.0-8.0); TRIGLYCERIDES 284 mg/dl (<150)
== END | disposition home or self-care (01) ==
LOC: RESCLI 00:29
PROVIDERS: Student in an Organized Health Care Education/Training Program; ATTEND Internal Medicine
DX: K21.9 Gastro-esophageal reflux disease without esophagitis (principal); I10 Essential (primary) hypertension; E78.5 Hyperlipidemia, unspecified; R51.9 Headache, unspecified; F32.9 Major depressive disorder, single episode, unspecified; F90.9 Attention-deficit hyperactivity disorder, unspecified type; N40.0 Benign prostatic hyperplasia without lower urinary tract symptoms; G47.00 Insomnia, unspecified; F48.2 Pseudobulbar affect; R19.7 Diarrhea, unspecified; Z79.899 Other long term (current) drug therapy; Z88.8 Allergy status to other drugs, medicaments and biological substances; Z98.890 Other specified postprocedural states

== ENCOUNTER → 2024-01-18 | Outpatient (CLI) | payer OTHER, MEDICAID ==
[2024-01-18 12:09] LABS: BASO # 0.1 10*3/uL (0.0-0.1); BASO % 1.1 % (0.0-1.0); EOS # 0.1 10*3/uL (0.0-0.4); EOS % 1.3 % (1.0-4.0); MEAN CELL VOLUME 93.6 fl (80.0-94.0); MEAN CORPUSCULAR HGB 30.4 pg (27.0-31.0); MEAN CORPUSCULAR HGB CONC 32.5 g/dl (33.0-37.0); MEAN PLATELET VOLUME 10.3 fl (9.6-12.3); MONO # 0.5 10*3/uL (0.1-1.0); MONO % 7.5 % (3.0-9.0); NEUT # 4.5 10*3/uL (2.3-7.9); NEUT % 63.9 % (47.0-73.0); PLATELET COUNT AUTOMATED 241 10*3/uL (130-400); RED CELL DISTRI WIDTH 12.9 % (0-14.5); WHITE BLOOD COUNT 7.1 10*3/uL (4.8-10.8)
[2024-01-18 12:41] LABS: ALKALINE PHOSPHATASE 82 U/L (46-116); BUN 9 mg/dl (9-23); CHLORIDE 102 mmol/L (98-107); CHOLESTEROL 243 mg/dL (<200); LDL CHOLESTEROL 123 mg/dL (9-159); POTASSIUM 4.2 mmol/L (3.4-5.1); SGPT/ALT 47 U/L (5-49); TOTAL PROTEIN 8.2 gm/dL (6.0-8.0); TRIGLYCERIDES 266 mg/dl (<150)
== END | disposition home or self-care (01) ==
LOC: RESCLI 01:06
PROVIDERS: Student in an Organized Health Care Education/Training Program; ATTEND Internal Medicine
DX: K21.9 Gastro-esophageal reflux disease without esophagitis (principal); E78.5 Hyperlipidemia, unspecified; R51.9 Headache, unspecified; I10 Essential (primary) hypertension; F32.9 Major depressive disorder, single episode, unspecified; F90.9 Attention-deficit hyperactivity disorder, unspecified type; N40.0 Benign prostatic hyperplasia without lower urinary tract symptoms; G47.00 Insomnia, unspecified; F41.9 Anxiety disorder, unspecified; F48.2 Pseudobulbar affect; R19.7 Diarrhea, unspecified; M25.571 Pain in right ankle and joints of right foot; Z79.899 Other long term (current) drug therapy

== ENCOUNTER → 2024-04-18 | Outpatient (CLI) | payer OTHER, MEDICAID ==
[~2024-04-18] MED LIST changes: +cloNIDine Hydrochloride 0.1 MG TAB PO ONE
[2024-04-18 12:52] LABS: BASO # 0.1 10*3/uL (0.0-0.1); BASO % 1.1 % (0.0-1.0); EOS # 0.1 10*3/uL (0.0-0.4); EOS % 1.3 % (1.0-4.0); HEMATOCRIT 42.4 % (42.0-52.0); MEAN CELL VOLUME 92.6 fl (80.0-94.0); MEAN CORPUSCULAR HGB 30.8 pg (27.0-31.0); MEAN CORPUSCULAR HGB CONC 33.3 g/dl (33.0-37.0); MEAN PLATELET VOLUME 10.5 fl (9.6-12.3); MONO # 0.4 10*3/uL (0.1-1.0); MONO % 6.9 % (3.0-9.0); NEUT % 57.7 % (47.0-73.0); PLATELET COUNT AUTOMATED 209 10*3/uL (130-400); RED BLOOD COUNT 4.58 10*6/uL (4.50-5.90); RED CELL DISTRI WIDTH 13.2 % (0-14.5); WHITE BLOOD COUNT 5.2 10*3/uL (4.8-10.8)
[2024-04-18 13:14] LABS: ALKALINE PHOSPHATASE 68 U/L (46-116); BUN 10 mg/dl (9-23); CHLORIDE 105 mmol/L (98-107); CHOLESTEROL 240 mg/dL (<200); LDL CHOLESTEROL 111 mg/dL (9-159); POTASSIUM 4.4 mmol/L (3.4-5.1); SGPT/ALT 79 U/L (5-49); TOTAL PROTEIN 7.4 gm/dL (6.0-8.0); TRIGLYCERIDES 343 mg/dl (<150)
== END | disposition home or self-care (01) ==
LOC: LAB 01:51 → RESCLI 01:51
PROVIDERS: Student in an Organized Health Care Education/Training Program; ATTEND Student in an Organized Health Care Education/Training Program
DX: I10 Essential (primary) hypertension (principal); E78.5 Hyperlipidemia, unspecified; R19.7 Diarrhea, unspecified; R39.15 Urgency of urination

== ENCOUNTER → 2024-04-26 | Outpatient (CLI) | payer OTHER, MEDICAID ==
[~2024-04-26] MED LIST changes: -cloNIDine Hydrochloride 0.1 MG TAB PO ONE
== END | disposition home or self-care (01) ==
LOC: CT 08:52
PROVIDERS: ATTEND Internal Medicine
DX: K57.30 Diverticulosis of large intestine without perforation or abscess without bleeding (principal); R19.7 Diarrhea, unspecified

== ENCOUNTER → 2024-05-02 | Outpatient (CLI) | payer OTHER, MEDICAID | END | disposition home or self-care (01) | LOC: RESCLI 01:23 | PROVIDERS: ATTEND Internal Medicine | DX: K21.9 Gastro-esophageal reflux disease without esophagitis (principal); E78.5 Hyperlipidemia, unspecified; R51.9 Headache, unspecified; F32.9 Major depressive disorder, single episode, unspecified; F90.9 Attention-deficit hyperactivity disorder, unspecified type; N40.0 Benign prostatic hyperplasia without lower urinary tract symptoms; G47.00 Insomnia, unspecified; F41.9 Anxiety disorder, unspecified; F48.2 Pseudobulbar affect; R19.7 Diarrhea, unspecified; M25.571 Pain in right ankle and joints of right foot; M25.522 Pain in left elbow; I10 Essential (primary) hypertension; R39.15 Urgency of urination; Z79.899 Other long term (current) drug therapy; Z98.890 Other specified postprocedural states ==

== ENCOUNTER → 2024-05-30 | Outpatient (CLI) | payer OTHER, MEDICAID | END | disposition home or self-care (01) | LOC: RESCLI 02:04 | PROVIDERS: ATTEND Internal Medicine | DX: I10 Essential (primary) hypertension (principal); K21.9 Gastro-esophageal reflux disease without esophagitis; E78.5 Hyperlipidemia, unspecified; R51.9 Headache, unspecified; F32.9 Major depressive disorder, single episode, unspecified; F90.9 Attention-deficit hyperactivity disorder, unspecified type; N40.0 Benign prostatic hyperplasia without lower urinary tract symptoms; G47.00 Insomnia, unspecified; F41.9 Anxiety disorder, unspecified; F48.2 Pseudobulbar affect; R19.7 Diarrhea, unspecified; M25.571 Pain in right ankle and joints of right foot; M25.572 Pain in left ankle and joints of left foot; R39.15 Urgency of urination; Z79.899 Other long term (current) drug therapy; Z98.890 Other specified postprocedural states ==

== ENCOUNTER → 2024-08-01 | Outpatient (CLI) | payer OTHER, MEDICAID | END | disposition home or self-care (01) | LOC: RESCLI 13:09 | PROVIDERS: ATTEND Family Medicine | DX: I10 Essential (primary) hypertension (principal); K21.9 Gastro-esophageal reflux disease without esophagitis; E78.5 Hyperlipidemia, unspecified; R51.9 Headache, unspecified; F32.9 Major depressive disorder, single episode, unspecified; F90.0 Attention-deficit hyperactivity disorder, predominantly inattentive type; N40.0 Benign prostatic hyperplasia without lower urinary tract symptoms; G47.00 Insomnia, unspecified; F41.9 Anxiety disorder, unspecified; F48.2 Pseudobulbar affect; R19.7 Diarrhea, unspecified; M25.571 Pain in right ankle and joints of right foot; M25.522 Pain in left elbow; H53.8 Other visual disturbances; E78.1 Pure hyperglyceridemia ==

== ENCOUNTER → 2024-08-05 | Outpatient (CLI) | payer OTHER, MEDICAID ==
[2024-08-05 09:32] LABS: BASO # 0.1 10*3/uL (0.0-0.1); BASO % 1.2 % (0.0-1.0); EOS # 0.1 10*3/uL (0.0-0.4); EOS % 1.8 % (1.0-4.0); HEMATOCRIT 40.7 % (42.0-52.0); MEAN CORPUSCULAR HGB 31.2 pg (27.0-31.0); MEAN CORPUSCULAR HGB CONC 33.2 g/dl (33.0-37.0); MEAN PLATELET VOLUME 10.1 fl (9.6-12.3); MONO # 0.5 10*3/uL (0.1-1.0); MONO % 7.7 % (3.0-9.0); NEUT # 3.4 10*3/uL (2.3-7.9); NEUT % 56.8 % (47.0-73.0); PLATELET COUNT AUTOMATED 207 10*3/uL (130-400); RED BLOOD COUNT 4.33 10*6/uL (4.50-5.90)
[2024-08-05 09:57] LABS: ALKALINE PHOSPHATASE 87 U/L (46-116); BUN 11 mg/dl (9-23); CHLORIDE 102 mmol/L (98-107); CHOLESTEROL 209 mg/dL (<200); LDL CHOLESTEROL 97 mg/dL (9-159); POTASSIUM 3.5 mmol/L (3.4-5.1); SGPT/ALT 47 U/L (5-49); TOTAL PROTEIN 7.4 gm/dL (6.0-8.0); TRIGLYCERIDES 263 mg/dl (<150)
== END | disposition home or self-care (01) ==
LOC: LAB 09:10
PROVIDERS: Student in an Organized Health Care Education/Training Program; ATTEND Family Medicine
DX: I10 Essential (primary) hypertension (principal); E78.5 Hyperlipidemia, unspecified

== ENCOUNTER → 2024-10-31 | Outpatient (CLI) | payer OTHER, MEDICAID ==
[2024-10-31 11:34] LABS: BASO # 0.1 10*3/uL (0.0-0.1); BASO % 1.7 % (0.0-1.0); EOS # 0.1 10*3/uL (0.0-0.4); EOS % 1.4 % (1.0-4.0); MEAN CELL VOLUME 91.5 fl (80.0-94.0); MEAN CORPUSCULAR HGB 31.4 pg (27.0-31.0); MEAN PLATELET VOLUME 10.6 fl (9.6-12.3); MONO # 0.5 10*3/uL (0.1-1.0); MONO % 7.8 % (3.0-9.0); NEUT # 4.3 10*3/uL (2.3-7.9); NEUT % 65.4 % (47.0-73.0); NUCLEATED RED BLOOD CELL 0.0 % (0.0-0.0); NUCLEATED RED BLOOD CELL 0.0 10*3/uL (0.0-0.0); PLATELET COUNT AUTOMATED 284 10*3/uL (130-400); RED CELL DISTRI WIDTH 12.5 % (0-14.5)
[2024-10-31 12:02] LABS: BUN 9 mg/dl (9-23); LDL CHOLESTEROL 169 mg/dL (9-159); SGPT/ALT 34 U/L (5-49)
== END | disposition home or self-care (01) ==
LOC: RESCLI 01:41
PROVIDERS: Student in an Organized Health Care Education/Training Program; ATTEND Internal Medicine
DX: K21.9 Gastro-esophageal reflux disease without esophagitis (principal); I10 Essential (primary) hypertension; E78.5 Hyperlipidemia, unspecified; F32.9 Major depressive disorder, single episode, unspecified; F90.9 Attention-deficit hyperactivity disorder, unspecified type; N40.0 Benign prostatic hyperplasia without lower urinary tract symptoms; G47.00 Insomnia, unspecified; F41.9 Anxiety disorder, unspecified; F48.2 Pseudobulbar affect; R19.7 Diarrhea, unspecified; M25.571 Pain in right ankle and joints of right foot; M25.572 Pain in left ankle and joints of left foot; H53.8 Other visual disturbances; E78.1 Pure hyperglyceridemia; Z79.899 Other long term (current) drug therapy

== ENCOUNTER → 2025-01-30 | Outpatient (CLI) | payer OTHER, MEDICAID ==
[2025-01-30 11:08] LABS: BASO # 0.1 10*3/uL (0.0-0.1); BASO % 1.3 % (0.0-1.0); EOS # 0.1 10*3/uL (0.0-0.4); EOS % 1.4 % (1.0-4.0); MEAN CELL VOLUME 89.2 fl (80.0-94.0); MEAN CORPUSCULAR HGB 29.7 pg (27.0-31.0); MEAN PLATELET VOLUME 10.6 fl (9.6-12.3); MONO # 0.6 10*3/uL (0.1-1.0); MONO % 7.8 % (3.0-9.0); NEUT # 4.6 10*3/uL (2.3-7.9); NEUT % 60.9 % (47.0-73.0); NUCLEATED RED BLOOD CELL 0.0 % (0.0-0.0); NUCLEATED RED BLOOD CELL 0.0 10*3/uL (0.0-0.0); PLATELET COUNT AUTOMATED 214 10*3/uL (130-400); RED CELL DISTRI WIDTH 13.1 % (0-14.5)
[2025-01-30 11:42] LABS: BUN 11 mg/dl (9-23); LDL CHOLESTEROL 75 mg/dL (9-159); SGPT/ALT 51 U/L (5-49)
== END | disposition home or self-care (01) ==
LOC: RESCLI 01:59 → LAB 04:59
PROVIDERS: Student in an Organized Health Care Education/Training Program; ATTEND Internal Medicine
DX: I10 Essential (primary) hypertension (principal); E78.5 Hyperlipidemia, unspecified